=== PATIENT | male | born 1975 | race Two or more races ===

== ENCOUNTER 2024-05-01 01:00 | Inpatient (IN) | payer MEDICAID, OTHER ==
[~2024-05-01] VITALS: Ht 175.3 cm; Wt 72.3 kg
[2024-05-01] MEDS: ONDANSETRON HCL 4 MG/2 ML VIAL IV ONE (01:30)
--- NOTE | 2024-05-01 01:34 | ED.PDOC ---
HPI Comments 48-year-old male who came to ER via EMS for chest pains. Patient does have history of hypertension, diabetes, MS, status post CABG few days ago. Patient was sleeping earlier when feel sudden-onset chest pains, midsternal, 9/10 intensity, radiating to the back associated with shortness of breath and nausea Chief Complaint: Chest Pain Time Seen by MD: 01:33 Reviewed Notes: At[employer] Professor Notes Allergies: Coded Allergies: Metronidazole (Verified Allergy, Unknown, 05/01/24) Pantoprazole (Verified Allergy, Unknown, 05/01/24) Information Source: Patient, Emergency Med Personnel Mode of Arrival: EMS Severity: Moderate Timing: Minutes Duration: Since onset Prehospital treatment: 12 Lead EKG Location: Substernal Radiation: Back Quality: Sharp Onset: At Rest Cardiac Risk Factors: HTN, Diabetes PE Risk Factors: None History of: None Modifying Factors: Nothing Associated Signs and Symptoms: SOB, N/V, Back Pain Past Medical History PAST MEDICAL HISTORY: DM, HTN, MS Surgical History: CABG Family History Family History: Reviewed,noncontributory to illness Social History Smoker: Non-Smoker Alcohol: Denies ETOH Use Drugs: Denies Drug Use Lives In: Home Constitutional: denies: chills, diaphoresis, fatigue, fever, malaise, sweats, weakness, others EENTM: denies: blurred vision, double vision, ear bleeding, ear discharge, ear drainage, ear pain, ear ringing, eye pain, eye redness, hearing loss, mouth pain, mouth swelling, nasal discharge, nose bleeding, nose congestion, nose pain, photophobia, tearing, throat pain, throat swelling, voice changes, others Respiratory: reports: SOB at rest, shortness of breath; denies: cough, hemoptysis, orthopnea, SOB with excertion, stridor, wheezing, others Cardiovascular: reports: chest pain, dizzy spells; denies: diaphoresis, Dyspnea on exertion, edema, irregular heart beat, left arm pain, lightheadedness, palpitations, PND, syncope, others Gastrointestinal: denies: abdomen distended, abdominal pain, blood streaked bowels, constipated, diarrhea, dysphagia, difficulty swallowing, hematemesis, melena, nausea, poor appetite, poor fluid intake, rectal bleeding, rectal pain, vomiting, others Genitourinary: denies: burning, dysuria, flank pain, frequency, hematuria, inco ntinence, penile discharge, penile sore, pain, testicle pain, testicle swelling, urgency, others Neurological: reports: weakness; denies: dizziness, fainting, headache, left sided numbness, left sided weakness, numbness, paresthesia, pre-existing deficit, right sided numbness, right sided weakness, seizure, speech problems, tingling, tremors, others Musculoskeletal: reports: back pain; denies: gout, joint pain, joint swelling, muscle pain, muscle stiffness, neck pain, others Integumetry: denies: bruises, change in color, change in hair/nails, dryness, laceration, lesions, lumps, rash, wounds, others Allergic/Immunocompromised: denies: Difficulty Healing, Frequent Infections, Hives, Itching, others Hematologic/Lymphatic: denies: anemia, blood clots, easy bleeding, easy bruising, swollen glands, others Endocrine: denies: excessive hunger, excessive sweating, excessive thirst, excessive urination, flushing, intolerance to cold, intolerance to heat, unexplained weight gain, unexplained weight loss, others Psychiatric: denies: anxiety, bipolar disorder, depression, hopeless, panic disorder, schizophrenia, sleepless, suicidal, others Physical Exam General Appearance: No Apparent Distress, Normal HEENT: Normal ENT Inspection, Pharynx Normal, TMs Normal Neck: Full Range of Motion, Non-Tender, Normal, Normal Inspection Respiratory: Chest Non-Tender, Lungs Clear, No Accessory Muscle Use, No Respiratory Distress, Normal Breath Sounds Cardiovascular: No Edema, No JVD, No Murmur, No Gallop, Normal Peripheral Pulses, Regular Rate/Rhythm Breast Exam: Deferred Gastrointestinal: No Organomegaly, Non Tender, No Pulsatile Mass, Normal Bowel Sounds, Soft Genitalia: Deferred Pelvic: Deferred Rectal: Deferred Extremities: No calf tenderness, Normal capillary refill, Normal inspection, Normal range of motion, Non-tender, No pedal edema Musculoskeletal : Apperance: Normal Neurologic: Alert, music critic II-XII nml as Tested, No Motor Deficits, Normal Affect, Normal Mood, No Sensory Deficits Cerebellar Function: Normal Reflexes: Normal Skin: Dry, Normal Color, Warm Lymphatic: No Adenopathy Was a procedure done? Was a procedure done?: No CP Differential Dx Differential Diagnosis: Angina, Anxiety / Panic Attack, Electrolyte Disorder Differential Diagnosis: Angina, Chest Wall Pain, Costochondritis, Esophageal reflux/spasm, Gastritis, Myocardial Infarction, Pneumonia X-Ray, Labs, Meds, VS Vital Signs Date Time Temp Pulse Resp B/P (MAP) Pulse Ox O2 Delivery O2 Flow Rate FiO2 05/01/24 02:07 67 18 115/63 05/01/24 01:37 96 14 126/69 05/01/24 01:25 98.3 88 22 126/69 (88) 98 98.3 05/01/24 01:00 93 05/01/24 01:00 98.9 94 14 117/71 (86) 100 Lab Test 05/01/24 01:47 Range/Units White Blood Count Pending Red Blood Count Pending Hemoglobin Pending Hematocrit Pending Mean Corpuscular Volume Pending Mean Corpuscular Hemoglobin Pending Mean Corpuscular Hemoglobin Concent Pending Red Cell Distribution Width Pending Platelet Count Pending Mean Platelet Volume Pending Neutrophils (%) (Auto) Pending Lymphocytes (%) (Auto) Pending Monocytes (%) (Auto) Pending Basophils (%) (Auto) Pending Neutrophils # (Auto) Pending Lymphocytes # (Auto) Pending Monocytes # (Auto) Pending Prothrombin Time 10.7 9.3-11.8 sec Prothrombin Time INR 1.01 0.9-1.15 Activated Partial Thromboplast Time 22.4 L 24.5-34.5 SEC Sodium Level 134 L 136-145 mmol/L Potassium Level 3.4 L 3.5-5.1 mmol/L Chloride Level 101 98-107 mmol/L Carbon Dioxide Level 25 20-31 mmol/L Anion Gap 8 5-15 Blood Urea Nitrogen 18 9-23 mg/dL Creatinine 0.92 0.700-1.30 mg/dL Glomerular Filtration Rate Calc 101 >90 mL/min BUN/Creatinine Ratio 19.6 10.0-20.0 Serum Glucose 119 H 74-106 mg/dL Calcium Level 9.3 8.7-10.4 mg/dL Total Bilirubin 0.4 0.2-1.0 mg/dL Aspartate Amino Transferase (AST) 32 13-40 U/L Alanine Aminotransferase (ALT) 51 H 7-40 U/L Alkaline Phosphatase 105 46-116 U/L Troponin I High Sensitivity 303 *H </=54 ng/L Total Protein 5.7 5.7-8.2 g/dL Albumin 3.7 3.2-4.8 g/dL Current Medications Medications (Trade) Dose Ordered Sig/Dionisio Route Start Time Stop Time Status Last Admin Morphine Sulfate 4 mg ONCE ONCE IV 05/01/24 01:30 05/01/24 01:31 DC 05/01/24 01:37 Aspirin (Ecotrin Enteric Coated Tablet) 81 mg ONCE ONCE PO 05/01/24 02:30 05/01/24 02:31 DC 05/01/24 02:26 Time of 1ST Reevaluation: 01:30 Reevaluation 1ST: Unchanged Time of 2ND Reevaluation: 02:40 Reevaluation 2ND: Unchanged Consultation: Other (I called [facility] as the patient just received a double bypass there but they are at capacity and cannot accept transfer, will admit to [facility]) Patient Education/Counseling: Diagnosis, Treatment Family Education/Counseling: Diagnosis, Treatment Departure 1 Departure Time of Disposition: 02:41 (I called [facility] as the patient just received a double bypass there but they are at capacity and cannot accept transfer, will admit to [facility]) Impression: Primary Impression: Chest pain Additional Impression: Unstable angina Disposition: ADMITTED INPATIENT Admit to: Tele Condition: Guarded Critical Care Note Critical Care Time?: Yes (35 min-critical care time only) Critical care comment: Total critical care time: Approximately 36 minutes Due to a high probability of clinically significant, life threatening deterioration, the patient required my highest level of preparedness to intervene emergently and I personally spent this critical care time directly and personally managing the patient. This critical care time included obtaining a history; examining the patient; pulse oximetry; ordering and review of studies; arranging urgent treatment with development of a management plan; evaluation of patient's response to treatment; frequent reassessment; and, discussions with other providers. This critical care time was performed to assess and manage the high probability of imminent, life-threatening deterioration that could result in multi-organ failure. It was exclusive of separately billable procedures and treating other patients. Stability Stability form required: No Heart Score Heart Score: Heart Score Response (Comments) Value History Highly Suspicious [address]-Deviation 2 Age 45-64 1 Risk Factors >3 or Hx ASHD 2 Troponin Normal limit 0 Total 7 I personally scribed for MATTHEW MONET MD ([email or web address]) on 05/01/24 at 01:34. Electronically submitted by Frank Parish ([email or web address]). MATTHEW MONET MD May 01, 2024 01:34
[2024-05-01] MEDS: MORPHINE SULFATE 4 MG/ML SYR/VIAL IV ONE (01:37)
--- NOTE | 2024-05-01 01:41 | DVH ---
EXAM: XY CHEST PORTABLE CLINICAL HISTORY: chest pain TECHNIQUE: Single AP view of the chest WID: COMPARISON: None FINDINGS: Lines and tubes: Prior median sternotomy and CABG. Chest: The heart size and pulmonary vasculature is within normal limits. No pleural effusion, pneumothorax, or consolidation. The osseous structures are grossly intact. IMPRESSION: No acute cardiopulmonary abnormality.
[2024-05-01 02:14] LABS: INR 1.01 (0.9-1.15); Partial Thromboplastin Time 22.4 SEC (24.5-34.5); Prothrombin Time 10.7 sec (9.3-11.8)
[2024-05-01 02:16] LABS: Albumin 3.7 g/dL (3.2-4.8); Alkaline Phosphatase 105 U/L (46-116); Anion Gap 8 (5-15); Aspartate Aminotransferase 32 U/L (13-40); BUN/Creatinine Ratio 19.6 (10.0-20.0); Bilirubin, Total 0.4 mg/dL (0.2-1.0); Blood Urea Nitrogen 18 mg/dL (9-23); Calcium 9.3 mg/dL (8.7-10.4); Carbon Dioxide 25 mmol/L (20-31); Chloride 101 mmol/L (98-107); Total Protein 5.7 g/dL (5.7-8.2)
[2024-05-01 02:17] LABS: Alanine Aminotransferase 51 U/L (7-40); Glucose 119 mg/dL (74-106); Potassium 3.4 mmol/L (3.5-5.1); Sodium 134 mmol/L (136-145)
[2024-05-01] MEDS: ASPirin-EC 81 mg tab PO ONE (02:26)
[2024-05-01 03:04] LABS: Basophils # (auto) 0 10 ^3/uL (0-0.2); Basophils % (auto) 0.2 % (0.0-2.0); Eosinophils # (auto) 0.2 10 ^3/uL (0-0.8); Eosinophils % (auto) 1.1 % (0.0-7.0); Hematocrit 26.2 % (41.0-53.0); Hemoglobin 8.5 g/dL (13.5-17.5); Lymphocytes # (auto) 1.9 10 ^3/uL (0.4-5.4); Lymphocytes % (auto) 13.4 % (10.0-50.0); Mean Corpuscular Hemoglobin 31.7 pg (28.0-32.0); Mean Corpuscular Hgb Conc. 32.5 g/dL (32.0-36.0); Mean Corpuscular Volume 97.4 fL (80.0-100.0); Monocytes # (auto) 0.9 10 ^3/uL (0-1.3); Monocytes % (auto) 6.4 % (0.0-12.0); Neutrophils # (auto) 11.5 10 ^3/uL (1.6-8.6); Neutrophils % (auto) 78.9 % (37.0-80.0); Platelet Count (auto) 439 10^3/uL (140-450); Red Blood Cells 2.69 10^6/uL (4.5-5.90); White Blood Cell 14.6 10^3/uL (4.4-10.8)
[2024-05-01] MEDS ORDERED: NITROGLYCERIN 0.4 MG SL TAB SL PRN (04:15)
[2024-05-01] MEDS: FAMOTIDINE (10MG/ML) 2ML VL IV ONE (04:33)
[2024-05-01] MEDS: ATORVASTATIN 20 MG TAB PO ONE (04:34)
[2024-05-01] MEDS: SUCRALFATE 1 GM/10 ML ORAL SUSP PO ONE (04:42)
[2024-05-01] MEDS: POTASSIUM CHL 20 Meq TABLET PO ONE (04:42)
[2024-05-01] MEDS: MORPHINE SULFATE INJ 2 MG/ml SYRG IV PRN ×2 (04:49→15:52)
[2024-05-01] MEDS: ONDANSETRON HCL 4 MG/2 ML VIAL IV PRN (05:07)
--- NOTE | 2024-05-01 06:31 | DVHHPRES ---
History of Present Illness Resident Creating Document: RAFFYFACUNDOSHILPIDELMA RESIDENT History of Present Illness Patient is a 48-year-old male with a past medical history of coronary artery disease with history of 9 MIs status post multiple PTCA with the 11 stents, the most recent RI on 04/03/24 after which he got a CABG on 04/22 at [facility] and was discharged from the hospital on 04/28. Patient came to the ED after he had chest pain and shortness of breath about midnight today. Patient reports since the time he has got surgery and has come home he has been having mild chest pain likely associated with post surgery but he reported that since early in the morning today he has been having more chest pain at midnight the intensity increased and chest pain was substernal pressure-like, nonradiating, associated shortness of breath, no associated palpitations, sweating, abdominal pain, nausea. On arrival to the ED patient's vitals blood pressure 117/71 mmHg, heart rate 94 bpm, SpO2 > 92% on room air. Chest x-ray was done which showed increased pulmonary vascular markings, no acute cardiopulmonary abnormalities. Patient was given loading dose of aspirin in the EMS and morphine was given in the ED which relieved his chest pain to some extent. EKG showed sinus rhythm with changes suggestive of previous inferior and anteroseptal infarct, QT interval at 584 milliseconds. Troponins trended 303--> 306 Past medical history: Multiple MIs status post multiple PTCA and 11 stents, CABG, type 2 diabetes mellitus, hyperlipidemia, hypertension, diverticulitis Surgical history: Multiple PTCA, CABG, sigmoid colectomy, left lung thoracotomy Social history: Patient lives with family and denies using drugs. Occasional smoker and alcohol drinker Home medications: Metoprolol tartrate 12.5 mg b.i.d., aspirin 81 mg, Brilinta 90 mg b.i.d., atorvastatin 80 mg, furosemide 20 mg q.d. Review of Systems Review of Systems Patient reports mild chest pain, pressure-like more around the sternal scar of surgery. mild nausea, denies vomiting Denies shortness of breath, palpitations, dizziness. Allergies: Coded Allergies: Metronidazole (Verified Allergy, Unknown, 05/01/24) Pantoprazole (Verified Allergy, Unknown, 05/01/24) Medications Current Medications Medications Dose Ordered Sig/Dionisio Route Start Time Stop Time Status Last Admin Dose Admin Nitroglycerin 0.4 mg Q5MINP PRN SL 05/01/24 04:15 Morphine Sulfate 2 mg Q30M PRN IV 05/01/24 04:15 Atorvastatin Calcium 80 mg HS PO 05/01/24 22:00 Metoprolol Tartrate 12.5 mg BID PO 05/01/24 10:00 Ticagrelor 90 mg BID PO 05/01/24 10:00 Furosemide 40 mg ONCE IV 05/01/24 04:15 UNV Aspirin 81 mg DAILY PO 05/01/24 10:00 Morphine Sulfate 2 mg Q4HPRN PRN IV 05/01/24 04:15 05/01/24 04:49 2 MG Acetaminophen/ Hydrocodone Bitart 1 tab Q4HP PRN PO 05/01/24 04:15 Ondansetron HCl 4 mg Q6HPRN PRN IV 05/01/24 05:00 05/01/24 05:07 4 MG Exam Vital Signs Vital Signs Date Time Temp Pulse Resp B/P (MAP) Pulse Ox O2 Delivery O2 Flow Rate FiO2 05/01/24 04:49 82 20 131/79 05/01/24 04:28 98 05/01/24 01:25 98.3 98.3 05/01/24 01:15 Nasal Cannula* 2 28 Exam Physical Examination Constitutional: Patient was alert and oriented to time, place and person and appears to be in mild distress because of the chest pain. Gen - mild conjunctival pallor, no icterus, no cyanosis, no clubbing, no LAD, no edema . Skin - Patients skin is warm and dry and pale HEENT - normocephalic, atraumatic, dry mucous membranes. Neck - full ROM, no LAD, no JVD Pulmonary - B/L vesicular breath sounds. no crackles , no wheezing. cardiovascular - normal S1,S2 heard. no murmurs heard. peripheral pulses radial 2+, pedal 2+. GI - soft abdomen without tenderness to palpation . no hepatospleenomegaly. Bowel sounds normoactive Neurological - Bilateral upper extremity strength 5/5, bilateral lower extremity strength 5/5, no facial droop, normal speech, no tremor, no sensory deficiets. Labs/Xrays Labs Test 05/01/24 02:45 05/01/24 01:47 Range/Units White Blood Count 14.6 H 4.4-10.8 10^3/uL Red Blood Count 2.69 L 4.5-5.90 10^6/uL Hemoglobin 8.5 L 13.5-17.5 g/dL Hematocrit 26.2 L 41.0-53.0 % Mean Corpuscular Volume 97.4 80.0-100.0 fL Mean Corpuscular Hemoglobin 31.7 28.0-32.0 pg Mean Corpuscular Hemoglobin Concent 32.5 32.0-36.0 g/dL Red Cell Distribution Width 14.0 11.8-14.3 % Platelet Count 439 140-450 10^3/uL Mean Platelet Volume 7.8 6.9-10.8 fL Neutrophils (%) (Auto) 78.9 37.0-80.0 % Lymphocytes (%) (Auto) 13.4 10.0-50.0 % Monocytes (%) (Auto) 6.4 0.0-12.0 % Eosinophils (%) (Auto) 1.1 0.0-7.0 % Basophils (%) (Auto) 0.2 0.0-2.0 % Neutrophils # (Auto) 11.5 H 1.6-8.6 10 ^3/uL Lymphocytes # (Auto) 1.9 0.4-5.4 10 ^3/uL Monocytes # (Auto) 0.9 0-1.3 10 ^3/uL Eosinophils # (Auto) 0.2 0-0.8 10 ^3/uL Basophils # (Auto) 0 0-0.2 10 ^3/uL Nucleated Red Blood Cells 0.0 % Troponin I High Sensitivity 306 *H </=54 ng/L Prothrombin Time 10.7 9.3-11.8 sec Prothrombin Time INR 1.01 0.9-1.15 Activated Partial Thromboplast Time 22.4 L 24.5-34.5 SEC Sodium Level 134 L 136-145 mmol/L Potassium Level 3.4 L 3.5-5.1 mmol/L Chloride Level 101 98-107 mmol/L Carbon Dioxide Level 25 20-31 mmol/L Anion Gap 8 5-15 Blood Urea Nitrogen 18 9-23 mg/dL Creatinine 0.92 0.700-1.30 mg/dL Glomerular Filtration Rate Calc 101 >90 mL/min BUN/Creatinine Ratio 19.6 10.0-20.0 Serum Glucose 119 H 74-106 mg/dL Calcium Level 9.3 8.7-10.4 mg/dL Total Bilirubin 0.4 0.2-1.0 mg/dL Aspartate Amino Transferase (AST) 32 13-40 U/L Alanine Aminotransferase (ALT) 51 H 7-40 U/L Alkaline Phosphatase 105 46-116 U/L Total Protein 5.7 5.7-8.2 g/dL Albumin 3.7 3.2-4.8 g/dL Assessment/Plan Assessment/Plan Assessment # Acute chest pain, rule out ACS # ?Post surgical chest pain # SIRS +, likely reactive from post surgery # NSTEMI likely type II # PE less likely, Wells score for PE < 4 # ?GERD # CAD s/p multiple PTCA s/p CABG 04/22/24 # ?heart failure with improved ejection fraction # Normocytic anemia # hypokalemia Plan - patient continued on home medication - metoprolol 12.5 mg b.i.d. - atorvastatin 80 mg - Brilinta 90 mg b.i.d. - aspirin 81 mg daily - given furosemide 40 mg once - famotidine 20 mg IV once and sucralfate 1 g p.o. given - replenish potassium with 20 mEq p.o. - morphine p.r.n. for chest pain - echo pending - cardiology consult pending DVT prophylaxis: Enoxaparin 40 mg sc daily Pud prophylaxis: Famotidine 20 mg IV daily Goals of care discussed with the patient for over 23 minutes. Full code plan discussed with Dr. Najera Plan discussed with: Patient My Orders Orders - DEBRA GOODMAN RESIDENT Procedure Category Date Status Time Admit ADMIT 05/01/24 Transmitted 04:04 Nitroglycerin PHA 05/01/24 In Process Sublingual (Ntrostat 04:15 Morphine Sulfate PHA 05/01/24 In Process Injection 04:15 Oxygen By Nasal RT 05/01/24 Transmitted Cannula 04:04 Stat Ekg For Chest FOUZIA 05/01/24 In Process Pain 04:04 Paving Machine Operator For FOUZIA 05/01/24 In Process 24 Hours 04:04 Emergency Dysrhythmia FOUZIA 05/01/24 In Process Protocol 04:04 Atorvastatin (Lipitor) PHA 05/01/24 In Process 22:00 Metoprolol Tartrate PHA 05/01/24 In Process Tablet (Lopressor Ta 10:00 Ticagrelor (Brilinta) PHA 05/01/24 In Process 10:00 Furosemide Injection PHA 05/01/24 Pending (Lasix Injection) 04:15 Aspirin Tablet PHA 05/01/24 In Process 10:00 Echo 2d Mode Cardiac US 05/01/24 Logged DOP 04:04 Morphine Sulfate PHA 05/01/24 In Process Injection 04:15 Hydrocodone-Acet PHA 05/01/24 In Process 7.5/325mg Tab ([place] 04:15 * Cardiology Consult CONS 05/01/24 Transmitted 04:04 Cardiac DIET 05/01/24 Transmitted Diet-2gna,Lofat,Lochol Breakfast Code Status CODE 05/01/24 Transmitted 04:04 Urinalysis LAB 05/01/24 Logged 04:25 Drug Screen LAB 05/01/24 Logged 04:25 Covid19 Antigen Michaela LAB 05/01/24 Logged Mrsa Screen IMANI 05/01/24 Logged 04:25 Rapid Influenza A&B LAB 05/01/24 Logged 04:25 Complete Blood Count LAB 05/01/24 Logged 08:00 Comprehensive LAB 05/01/24 Logged Metabolic Panel 08:00 Ondansetron Hcl PHA 05/01/24 In Process (Zofran) 05:00 Date of Service: May 01, 2024 Billing Provider: JYOTHI NAJERA MD AJ,[facility] RESIDENT May 01, 2024 06:31
[2024-05-01] MEDS: FUROSEMIDE 40 MG/4 ML VIAL IV ONE (07:13)
[2024-05-01 08:00] VITALS: PULSE 89; RESP 17; O2SAT 97
[2024-05-01 09:06] LABS: Urine Bacteria FEW /hpf (None Seen); Urine Blood Negative /uL (Negative); Urine Clarity Clear (Clear); Urine Color Light-Yellow (Yellow); Urine Protein, UAD Negative (Negative); Urine Squamous Epithelial Cell None Seen /hpf (<5); Urine Urobilinogen Normal (Negative); Urine WBC <1 /hpf (0 - 3)
[2024-05-01 09:15] LABS: Cannabinoid Screen, Urine Neg (NEGATIVE); Opiate Scree,Urine Neg (NEGATIVE)
[2024-05-01 09:25] LABS: Amphetamine Screen, Urine Neg (NEGATIVE); Barbiturate Scree,Urine Neg (NEGATIVE); Benzodiazephine Screen, Urine Neg (NEGATIVE); Cocaine Screen, Urine Neg (NEGATIVE); Phencyclidine Screen, Urine Neg (NEGATIVE)
[2024-05-01] MEDS ORDERED: VANCOMYCIN PER PHARMACY 0 MG IV SCH (10:45)
--- NOTE | 2024-05-01 10:49 | DVHCONRES ---
NATO MONTAÑO RESIDENT 05/01/24 1049: Date Seen: May 01, 2024 Resident Creating Document: NATO MONTAÑO RESIDENT Referring Physician DR. Rachael Toussaint History of Present Illness This is a 48 year old male with a significant past medical history of CAD s/p multiple stents. First myocardial infarct was at age 28 and a recent PTCA was on 04/03/2024 and he had CABG on 04/22/2024 at [facility]. He presented to the ED with a chief complaints of chest pain and shortness of breath that started midnight last night. Pain felt like tightness in his chest similar to what he had experience in past. It associated with SOB, hot but but not fever, had nausea but not vomiting and just overall felt unwell. Thus he was brought to ED for evaluation. His vitals upon arrival to the ED read BP 117/71 mmHg, HR: 94 bpm, SpO2 > 92% on room air. Blood work revealed WBC: 14.6, hgb: 8.5; plt: 439. troponin: 303, 308, cr: 0.92. UA and toxicology screen was negative for infection and drugs respectively. Chest x-ray showed increased pulmonary vascular markings, no acute cardiopulmonary abnormalities, 12 lead EKG shows evidences of significant old VT, nothing acute that is concerning. Echo is pending. Patient's home medication include: Aspirin 81 mg daily, Ticagrelor 90mg bid, atorvastatin 80 mg Metoprolol tartrate 12.5 mg b.i.d. and furosemide 20 qd. Cardiology consulted for further assessment of patient. Past Medical History Multiple MIs status post multiple PTCA and 11 stents, CABG, type 2 diabetes mellitus, hyperlipidemia, hypertension, diverticulitis Past Surgical History Multiple PTCA, CABG, sigmoid colectomy, left lung thoracotomy Family History Father: Had 2 myocardial infarction, CHF; Mother: Cancer and Diabetes 4 Siblings: all had VT at least once Social History Patient lives with family 20 pack years Denies any illicit drug us. Alcohol 6-8 Bears on occasions. Allergies: Coded Allergies: Iodinated Diagnostic Agents (Verified Allergy, Severe, 05/01/24) Metronidazole (Verified Allergy, Unknown, 05/01/24) Pantoprazole (Verified Allergy, Unknown, 05/01/24) Home Meds Reported Medications Icosapent Ethyl (Icosapent Ethyl) 1 Gm Cap, 2 GM PO BIDWM, CAP 05/01/24 Omeprazole (Omeprazole Dr) 20 Mg Cap, 20 MG PO BID, CAP 05/01/24 Colchicine (Colchicine) 0.6 Mg Cap, 0.6 MG PO DAILY, CAP 05/01/24 Losartan Potassium (Losartan Potassium) 25 Mg Tab, 25 MG PO BID, MG 05/01/24 Carvedilol (Carvedilol) 12.5 Mg Tab, 12.5 MG PO Q12HR, MG 05/01/24 Ticagrelor Base (BRILINTA) 90 Mg Tab, 90 MG PO BID, TAB 05/01/24 Aspirin (Aspirin EC Adult Low Dose) 81 Mg Tab, 81 MG PO DAILY, TAB 05/01/24 Atorvastatin Calcium (Lipitor) 80 Mg Tab, 80 MG PO DAILY, TAB 05/01/24 Current Medications Current Medications Medications (Trade) Dose Ordered Sig/Dionisio Route PRN Reason Start Time Stop Time Status Last Admin Nitroglycerin (Ntrostat Sublingual) 0.4 mg Q5MINP PRN SL FOR CHEST PAIN 05/01/24 04:15 Morphine Sulfate 2 mg Q30M PRN IV FOR CHEST PAIN 05/01/24 04:15 Atorvastatin Calcium (Lipitor) 80 mg HS PO 05/01/24 22:00 Metoprolol Tartrate (Lopressor Tablet) 12.5 mg BID PO 05/01/24 10:00 Ticagrelor (Brilinta) 90 mg BID PO 05/01/24 10:00 Aspirin 81 mg DAILY PO 05/01/24 10:00 Morphine Sulfate 2 mg Q4HPRN PRN IV SEVERE PAIN (7-10 PAIN SCALE) 05/01/24 04:15 05/01/24 04:49 Acetaminophen/ Hydrocodone Bitart ([place] 7.5/325MG Tab) 1 tab Q4HP PRN PO MODERATE PAIN (4-6 PAIN SCALE) 05/01/24 04:15 Ondansetron HCl (Zofran) 4 mg Q6HPRN PRN IV NAUSEA OR VOMITING 05/01/24 05:00 05/01/24 05:07 Famotidine (Pepcid Injection) 20 mg DAILY IV 05/02/24 10:00 Enoxaparin Sodium (Lovenox) 40 mg DAILY SC 05/01/24 10:00 Review of Systems Constitutional: Denies fever no chills no feeling of malaise HEENT: Denies headache, ear pain, ear discharges, conjunctivitis, nasal discharge throat pain Cardiovascular: chest pains substernal; No palpitation, orthopnea, PND, or pedal edema Respiratory: Mild shortness of breath, cough, sputum production, hemoptysis, GI: Denies abdominal pain, nausea, vomiting, diarrhea, hematemesis, hematochezia, : Denies frequency, urgency, hematuria, Endocrine: Denies unintentional weight gain or weight loss, feeling of hot flashes, Marcus: Denies easy bruising, bleeding disorders, epistaxis Musculoskeletal: pain at lower right lower extremity at the side of the vein harvest Psych: No evidence of depression, lisandro, suicidal ideation Vital Signs Vital Signs Date Time Temp Pulse Resp B/P (MAP) Pulse Ox O2 Delivery O2 Flow Rate FiO2 05/01/24 08:00 90 05/01/24 07:13 117/72 05/01/24 06:08 14 98 05/01/24 01:25 98.3 98.3 05/01/24 01:15 Nasal Cannula* 2 28 Physical Exam General examination- Mild acute distress HEENT: PEERLA, no acute nasal discharge Chest: Incision site scars, s/p CABG, healing wound with dry blood. no murmur Lung: No wheeze or rhonchi Abdomen: Nondistended, BS+, nontender, no organomegaly Musculoskeletal: Tenderness at right lower extremities Lower extremity: No leg edema Neurological: cranial nerves intact, no acute dysarthria or dysphagia Psychiatry-- Normal mood and affect Skin- no acute rash or purpura Labs/Diagnostic Data Labs Test 05/01/24 07:25 05/01/24 02:45 05/01/24 01:47 Range/Units Urine Color Light-yellow Yellow Urine Clarity Clear Clear Urine pH 7.0 5.0-9.0 Urine Specific [place] 1.010 1.001-1.035 Urine Protein Negative Negative Urine Ketones Negative Negative Urine Blood Negative Negative /uL Urine Nitrite Negative Negative Urine Bilirubin Negative Negative Urine Urobilinogen Normal Negative mg/dL Urine Leukocyte Esterase Negative Negative /uL Urine RBC 1 0 - 3 /hpf Urine WBC <1 0 - 3 /hpf Urine Squamous Epithelial Cells None seen <5 /hpf Urine Bacteria Few H None Seen /hpf Urine Glucose Normal Normal mg/dL Urine Opiates Screen Neg NEGATIVE Urine Fentanyl Screen Neg NEGATIVE Urine Barbiturates Screen Neg NEGATIVE Urine Phencyclidine Screen Neg NEGATIVE Urine Amphetamines Screen Neg NEGATIVE Urine Benzodiazepines Screen Neg NEGATIVE Urine Cocaine Screen Neg NEGATIVE Urine Cannabinoids Screen Neg NEGATIVE White Blood Count 14.6 H 4.4-10.8 10^3/uL Red Blood Count 2.69 L 4.5-5.90 10^6/uL Hemoglobin 8.5 L 13.5-17.5 g/dL Hematocrit 26.2 L 41.0-53.0 % Mean Corpuscular Volume 97.4 80.0-100.0 fL Mean Corpuscular Hemoglobin 31.7 28.0-32.0 pg Mean Corpuscular Hemoglobin Concent 32.5 32.0-36.0 g/dL Red Cell Distribution Width 14.0 11.8-14.3 % Platelet Count 439 140-450 10^3/uL Mean Platelet Volume 7.8 6.9-10.8 fL Neutrophils (%) (Auto) 78.9 37.0-80.0 % Lymphocytes (%) (Auto) 13.4 10.0-50.0 % Monocytes (%) (Auto) 6.4 0.0-12.0 % Eosinophils (%) (Auto) 1.1 0.0-7.0 % Basophils (%) (Auto) 0.2 0.0-2.0 % Neutrophils # (Auto) 11.5 H 1.6-8.6 10 ^3/uL Lymphocytes # (Auto) 1.9 0.4-5.4 10 ^3/uL Monocytes # (Auto) 0.9 0-1.3 10 ^3/uL Eosinophils # (Auto) 0.2 0-0.8 10 ^3/uL Basophils # (Auto) 0 0-0.2 10 ^3/uL Nucleated Red Blood Cells 0.0 % Troponin I High Sensitivity 306 *H </=54 ng/L Prothrombin Time 10.7 9.3-11.8 sec Prothrombin Time INR 1.01 0.9-1.15 Activated Partial Thromboplast Time 22.4 L 24.5-34.5 SEC Sodium Level 134 L 136-145 mmol/L Potassium Level 3.4 L 3.5-5.1 mmol/L Chloride Level 101 98-107 mmol/L Carbon Dioxide Level 25 20-31 mmol/L Anion Gap 8 5-15 Blood Urea Nitrogen 18 9-23 mg/dL Creatinine 0.92 0.700-1.30 mg/dL Glomerular Filtration Rate Calc 101 >90 mL/min BUN/Creatinine Ratio 19.6 10.0-20.0 Serum Glucose 119 H 74-106 mg/dL Calcium Level 9.3 8.7-10.4 mg/dL Total Bilirubin 0.4 0.2-1.0 mg/dL Aspartate Amino Transferase (AST) 32 13-40 U/L Alanine Aminotransferase (ALT) 51 H 7-40 U/L Alkaline Phosphatase 105 46-116 U/L Total Protein 5.7 5.7-8.2 g/dL Albumin 3.7 3.2-4.8 g/dL Assessment NSTEMI -->Serial troponin --> Possible coronary angiogram on Saturday --> Contrast dye allergies --> prep for angiogram --> Benedryl 25 mg bid --> Methylprednisolone : 40 mg daily --> Famotidine 20 mg BID --> Rule out incisional wound infections. will continue to monitor over the weekend for possible LHC on 05/04/2024 Rule out acute mediastinitis --> CTA with contrast: Contrast dye allergies --> ESR: 43; CRP: 1.53 --> Blood culture:pending --> wound swap --> colchicine .6mg bid --> Vancomycin per pharmacy --> Ceftriaxone Rule out postpericardiotomy syndrome ( PPS) --> CABG on 04/22 at [facility] --> History of 9 myocardial infarctions and 11 Stents --> Continue DAPT, statin and ezetimibe, BB Diabetes mellitus Type II --> Hgb1 A pending --> Serum glucose Hypertension --> Current BP: 117/72 --> Continue Metoprolol Hypokalemia --> K: 3.2 --> replaced SIRS --> WBC: 14.6 --> Continue management per Primary team Thank you for allowing us to participate in the care of this patient. Please call if you have any questions or concerns. Plan discussed with: Patient Visit Coding Cardiology RES Date of Service: May 01, 2024 Billing Provider: KENDELL GRIER MD Cardiology Common Codes: [id number] INP/OBS CARE (High) Cardiology Consultation Codes: [id number] CONSULT <60MIN PETER WEST MD 05/04/24 1202: Allergies: Coded Allergies: Iodinated Diagnostic Agents (Verified Allergy, Severe, 05/01/24) Metronidazole (Verified Allergy, Unknown, 05/01/24) Pantoprazole (Verified Allergy, Unknown, 05/01/24) Home Meds Reported Medications Icosapent Ethyl (Icosapent Ethyl) 1 Gm Cap, 2 GM PO BIDWM, CAP 05/01/24 Omeprazole (Omeprazole Dr) 20 Mg Cap, 20 MG PO BID, CAP 05/01/24 Colchicine (Colchicine) 0.6 Mg Cap, 0.6 MG PO DAILY, CAP 05/01/24 Losartan Potassium (Losartan Potassium) 25 Mg Tab, 25 MG PO BID, MG 05/01/24 Carvedilol (Carvedilol) 12.5 Mg Tab, 12.5 MG PO Q12HR, MG 05/01/24 Ticagrelor Base (BRILINTA) 90 Mg Tab, 90 MG PO BID, TAB 05/01/24 Aspirin (Aspirin EC Adult Low Dose) 81 Mg Tab, 81 MG PO DAILY, TAB 05/01/24 Atorvastatin Calcium (Lipitor) 80 Mg Tab, 80 MG PO DAILY, TAB 05/01/24 Assessment Patient had recent CABG. He is presenting with chest pain that he described as substernal tightness and heaviness. Pain is intermittent but not related to activity. It reminds him of his anginal pain prior to his CABG. No shortness of breath at this point. He has been compliant his medications. No fever or chills. No cough. Plan/Recommendation Patient is presenting with chest pain and elevated troponin. EKG is not showing any acute ischemic changes. He had recent 2 vessel CABG at [facility]. His white count is elevated. He is being worked up by primary team for infectious process. From the cardiac standpoint, he is getting an echo done. We will trend his troponin. We will put him on IV heparin. Continue aspirin and statins. Continue the rest of the cardiac medications. Decision will be made later whether he would need coronary and graft angiography. NATO MONTAÑO RESIDENT May 01, 2024 10:49 PETER WEST MD May 04, 2024 12:02
[2024-05-01] MEDS: IOHEXOL 350 MG/ML 100ML IJ ONE (10:51)
[2024-05-01 11:32] LABS: CRP High Sensitivity 1.53 mg/dL (<1.0); Magnesium 2.1 mg/dL (1.6-2.6)
[2024-05-01] MEDS: ENOXAPARIN SOD 40 MG/0.4 ML SYRINGE SC SCH (11:38)
[2024-05-01] MEDS: METOPROLOL TARTRATE 25 MG TAB PO SCH (11:38)
[2024-05-01] MEDS: ASPirin 81 mg TAB PO SCH (11:39)
[2024-05-01] MEDS: HYDROcodone-ACET 7.5/325MG TAB PO PRN (11:39)
[2024-05-01] MEDS: TICAGRELOR 90 MG TAB PO SCH (11:40)
[2024-05-01] MEDS: cefTRIAXone 1GM/50ML D5W 50 ML IV ONE (11:40)
[2024-05-01] MEDS: COLCHICINE 0.6 MG CAP PO ONE (11:41)
[2024-05-01] MEDS: VANCOMYCIN 1.75GM/350ML 350 ML IV ONE (11:58)
[2024-05-01 12:00] LABS: COVID19 ANTIGEN SOFIA FIA NEGATIVE (NEGATIVE); Rapid Influenza A Negative (Negative); Rapid Influenza B Negative (Negative)
[2024-05-01] MEDS: EZETIMIBE 10 MG TAB PO ONE (12:22)
[2024-05-01 13:19] LABS: Basophils # (auto) 0 10 ^3/uL (0-0.2); Basophils % (auto) 0.3 % (0.0-2.0); Eosinophils # (auto) 0.2 10 ^3/uL (0-0.8); Eosinophils % (auto) 1.7 % (0.0-7.0); Monocytes # (auto) 0.8 10 ^3/uL (0-1.3)
[2024-05-01 13:22] LABS: Lymphocytes # (auto) 1.6 10 ^3/uL (0.4-5.4); Lymphocytes % (auto) 13.7 % (10.0-50.0); Mean Corpuscular Hemoglobin 32.7 pg (28.0-32.0); Mean Corpuscular Hgb Conc. 34.5 g/dL (32.0-36.0); Mean Corpuscular Volume 94.9 fL (80.0-100.0); Monocytes % (auto) 6.9 % (0.0-12.0); Neutrophils # (auto) 9.3 10 ^3/uL (1.6-8.6); Neutrophils % (auto) 77.4 % (37.0-80.0); Platelet Count (auto) 487 10^3/uL (140-450); Red Blood Cells 2.74 10^6/uL (4.5-5.90); Red Cell Distribution Width 14.1 % (11.8-14.3)
[2024-05-01 13:32] LABS: Albumin 3.9 g/dL (3.2-4.8); Alkaline Phosphatase 114 U/L (46-116); Anion Gap 6 (5-15); Aspartate Aminotransferase 26 U/L (13-40); BUN/Creatinine Ratio 13.7 (10.0-20.0); Bilirubin, Total 0.6 mg/dL (0.2-1.0); Blood Urea Nitrogen 14 mg/dL (9-23); Calcium 9.5 mg/dL (8.7-10.4); Carbon Dioxide 29 mmol/L (20-31); Chloride 99 mmol/L (98-107); Potassium 3.6 mmol/L (3.5-5.1)
[2024-05-01 13:35] LABS: Alanine Aminotransferase 54 U/L (7-40); Glucose 126 mg/dL (74-106); Sodium 134 mmol/L (136-145)
[2024-05-01 14:14] LABS: Erythrocyte Sedimentation Rate 43 mm/hr (0-20)
[2024-05-01] MEDS ORDERED: OMEP1CAP70 PO (15:15)
[2024-05-01] MEDS ORDERED: ASPI-316 PO (15:15)
[2024-05-01] MEDS ORDERED: LOSA-533 PO (15:15)
[2024-05-01] MEDS ORDERED: ATOR80TA PO (15:15)
[2024-05-01] MEDS ORDERED: TICA90TA PO (15:15)
[2024-05-01] MEDS ORDERED: ICOS1CAP3 PO (15:15)
[2024-05-01] MEDS ORDERED: COLC1CAP PO (15:15)
[2024-05-01] MEDS ORDERED: CARV12.544 PO (15:15)
--- NOTE | 2024-05-01 15:42 | DVHSR ---
APPROVED REPORT EXAM: LIMITED Two-dimensional and M-mode echocardiogram with Doppler and color Doppler. Blood Pressure: 117/72 mmHg INDICATION SOB, CABG on 04/22/'9 Contrast Details Indication: 158 RISK FACTORS Height: 5'9, Weight: 158 DIMENSIONS LVDd5.2 (3.8-5.7cm)LA (2D) (1.9-4.0cm)Aortic Root3.2 (2.0-3.7cm) LVDs3.9 (2.5-4.0cm)LA (MM) (1.9-4.0cm)Aortic Cusp Exc1.7 (1.5-2.0cm) EF (%) 50.0 (55-70%)Rt. Atrium (1.9-4.0cm)Asc. Aorta cm IVSd0.9 (0.7-1.1cm)RV (D) (1.8-2.4cm) PWd0.9 (0.7-1.1cm) Mitral Valve MitralMitral Stenosis E wave0.85m/sMV Mean GR.mmHg A wave0.74m/sMV Peak GR.mmHg E/A ratio1.12D MVAcm2 DECEL [id number] 1/2 Timems Aortic Valve Aortic ValveAortic Stenosis V10.89m/Liam Mean GR.4mmHg V21.39m/Liam Peak GR.8mmHg LVOT Diameter2.1 (1.8-2.4cm)Doppler AVA2.22cm2 Pulmonic Valve V21.56m/s Tricuspid Valve TR Velocity2.45m/s [id number] LEFT VENTRICLE The left ventricle is of normal in size. Left ventricular wall thickness was normal. Ejection fract ion is estimated at around 50%. The study is inadequate to assess for wall motion abnormalities. Th ere appears to be paradoxical septal wall motion abnormality. There is a grade 2 diastolic dysfuncti on. E to E prime ratio is in the normal range. RIGHT VENTRICLE The right ventricle is not well visualized. ATRIA The left atrium was of normal size. The right atrium is not well visualized. MITRAL VALVE The mitral valve is of normal structure and function. PULMONIC VALVE Not well visualized. TRICUSPID VALVE Not well visualized. AORTIC VALVE The aortic valve appears to be of normal structure and function. GREAT VESSELS The aortic root is of normal size. PERICARDIAL EFFUSION There is no pericardial effusion. Other Information Quality : Technically LimitedRhythm : Technically limited study due to pt in pain and unable to obtain apicals or subs due to scar Conclusion The study is technically limited. The left ventricle is of normal size and likely low-normal systolic function. Ejection fraction is estimated at 60%. There appears to be paradoxical septal wall motion abnormality. Otherwise, the study is inadequate t o assess for wall motion abnormalities. There is grade II diastolic dysfunction. The right ventricle is not well visualized. The IVC is of normal size and collapses normally with inspiration. RV systolic pressure is estimated at 24 mm Hg. There is no prior study for comparison.
[2024-05-01] MEDS: methylPREDNISolone SOD SUCC 40 MG/ML VL IV ONE (15:52)
--- NOTE | 2024-05-01 17:49 | DVHPNRES ---
Progress Note Date Seen: May 01, 2024 Resident Creating Document: MARILEE BETANCOURT RESIDENT Medical Necessity Reason Pt with a Central, PICC or Fol: No Subjective Review of Systems Patient is 48 years old male with past medical history of coronary artery disease, DC 9 times, status post PTCA times 11, most recent DC on 04/03/24 and had a CABG at [facility] on April 22, 2024 and discharged on 04/28/2024, hypertension, diabetes mellitus type 2, hyperlipidemia, history of diverticulitis came with a complaint of chest pain and shortness of breaths. As per patient he has been having chest pain since midnight which woke him up from the sleep. Pain lasted about 30 minute and came back and woke him up from sleep in 30 minutes. Chest pain was central, 10/10, pressure-like, radiating to the left side of the arm. Patient's chest pain was also associated with shortness of breath. Patient denied any fever, palpitation, cough, dysuria, acute joint pain or swelling, rash, dysarthria or change in vision. Patient also reported that has been feeling some exertional shortness of breath since yesterday morning. She lab workup revealed WBC 14.6, hemoglobin 8.5> 9.0, potassium 3.4, ALT 51, troponin I 303, INR 1.01, CRP 1.53, TSH 1.95, TG 186, BNP 226, HGB A1c 6.7. EKG sinus rhythm, no acute ST elevation or depression.No acute cardiopulmonary abnormality. Echo 2D revealed-Ejection fraction is estimated at 60%. paradoxical septal wall motion abnormality. grade II diastolic dysfunction. The right ventricle is not well visualized. RV systolic pressure is estimated at 24 mm Hg. PMH-coronary artery disease, MIx 9 times, status post PTCA x11, most recent DC on 04/03/24 and had a CABG at [facility] on April 22, 2024 and discharged on 04/28/2024, hypertension, diabetes mellitus type 2, hyperlipidemia, history of diverticulitis PSH- Multiple PTCA, CABG, sigmoid colectomy, left lung thoracotomy Allergy- iodinated diagnostic agent, metronidazole, pantoprazole Home medications: Metoprolol tartrate 12.5 mg b.i.d., aspirin 81 mg, Brilinta 90 mg b.i.d., atorvastatin 80 mg, furosemide 20 mg q.d. Personal History/ Social History- Patient lives with family and denies using drugs. Occasional smoker and alcohol drinker Patient was seen today at the bedside. Patient Cardiovascular- deny cough or palpitation Respiratory- denies cough or wheezing Gastrointestinal- denies any rectal bleeding, nausea or vomiting Musculoskeletal-denies acute joint swelling or tenderness or redness Neurological- denies acute dysarthria, dysphagia, change in vision Psychiatry- denies depression or SI or HI Skin- denies acute rash or purpura Patient was seen today for clinical evaluation. Labs and chart reviewed. Patient reported feeling better today. Patient was seen by Cardiology, recommendation reviewed and appreciated. Per cardiology possible coronary angiogram on Saturday. Due for CT angiogram. Objective vital signs Vital Sign Date Time Temp Pulse Resp B/P (MAP) Pulse Ox O2 Delivery O2 Flow Rate FiO2 05/01/24 16:22 80 17 109/63 05/01/24 16:00 98 05/01/24 08:00 Nasal Cannula* 4 36 05/01/24 08:00 98.4 98.4 medications Current Medications Medications Dose Ordered Sig/Dionisio Route Start Time Stop Time Status Last Admin Dose Admin Nitroglycerin 0.4 mg Q5MINP PRN SL 05/01/24 04:15 Morphine Sulfate 2 mg Q30M PRN IV 05/01/24 04:15 05/01/24 15:52 2 MG Atorvastatin Calcium 80 mg HS PO 05/01/24 22:00 Metoprolol Tartrate 12.5 mg BID PO 05/01/24 10:00 05/01/24 11:38 12.5 MG Ticagrelor 90 mg BID PO 05/01/24 10:00 05/01/24 11:40 90 MG Aspirin 81 mg DAILY PO 05/01/24 10:00 05/01/24 11:39 81 MG Morphine Sulfate 2 mg Q4HPRN PRN IV 05/01/24 04:15 05/01/24 04:49 2 MG Acetaminophen/ Hydrocodone Bitart 1 tab Q4HP PRN PO 05/01/24 04:15 05/01/24 11:39 1 TAB Ondansetron HCl 4 mg Q6HPRN PRN IV 05/01/24 05:00 05/01/24 15:51 4 MG Famotidine 20 mg DAILY IV 05/02/24 10:00 Enoxaparin Sodium 40 mg DAILY SC 05/01/24 10:00 05/01/24 11:38 40 MG Colchicine 0.6 mg Q12HR PO 05/01/24 22:00 Vancomycin HCl 0 ml @ 0 mls/hr UD IV 05/01/24 10:45 Ceftriaxone Sodium 50 ml @ 100 mls/hr DAILY@09 IV 05/02/24 09:00 EZETIMIBE 10 mg DAILY PO 05/02/24 10:00 Diphenhydramine HCl 25 mg BID PO 05/01/24 22:00 Famotidine 20 mg Q12HR PO 05/01/24 22:00 Methylprednisolone Sodium Succinate 40 mg DAILY IV 05/02/24 10:00 Vancomycin HCl 250 ml @ 200 mls/hr Q12H IV 05/02/24 00:00 Examination General examination- awake, alert, oriented, conversant, sternal incision tray from recent CABG HEENT- PEERLA, no acute nasal discharge Cardiovascular- S1-S2 audible, rate and rhythm regular, no murmur Respiratory- CTAB, no wheeze or rhonchi Gastrointestinal-nontender, bowel sound+. Nondistended Musculoskeletal-no acute joint swelling or tenderness or redness# Lower extremity- no leg edema Neurological- cranial nerves intact, no acute dysarthria or dysphagia Psychiatry- denies depression or SI or HI Skin- no acute rash or purpura laboratory and microbiology Laboratory Tests 05/01/24 13:00 Test 05/01/24 13:00 Range/Units Serum Glucose 126 H 74-106 mg/dL Problem List/Assessment/Plan Problem List/Assessment/Plan Acute chest pain likely due to NSTEMI type 2 Rule out acute mediastinitis Rule out postpericardiotomy syndrome ( PPS) CAD, DC 9 times, , status post PTCA, status post CABG on 04/22/2024 Diabetes mellitus Type II Hypertension Heart 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 q.h.s. Continue ceftriaxone 1 g IV daily Continue vancomycin 1.25 mg IV q.12 hours Metoprolol 12.5 mg p.o. be Continue colchicine 0.6 mg p.o. q.12 hours Ezetimibe 10 mg p.o. daily Continue famotidine 20 mg p.o. q.12 hours Continue methylprednisolone 12.5 mg p.o. b.i.d. Continue Prilosec 20 mg p.o. b.i.d. Continue other medication as prescribed Goals of care/advance care planning; FULL CODE; discussed with the patient >15 minutes PUD prophylaxis: Famotidine DVT prophylaxis: Lovenox Plan discussed with Dr. Najera, nursing staff, patient Total time spent on patient evaluation, chart review, assessment and plan, discussion discussion >30 minutes Plan discussed with: Patient Plan discussed with: Patient, Other Date of Service: May 01, 2024 Billing Provider: JYOTHI NAJERA MD Common Visit Codes: [id number] INP/OBS CARE(HIGH) MARILEE BETANCOURT RESIDENT May 01, 2024 17:49 JYTOHI NAJERA MD May 02, 2024 10:27
[2024-05-01 18:43] VITALS: BP 102/63; PULSE 88; RESP 18; TEMP 98.7; O2SAT 98
[2024-05-01 18:46] VITALS: BP 107/63; PULSE 88; RESP 18; TEMP 98.7; O2SAT 98
[2024-05-01 20:00] VITALS: PULSE 94; RESP 18; O2SAT 93
[2024-05-01 21:00] VITALS: BP 115/63; PULSE 94; RESP 18; TEMP 98.5; O2SAT 93
[2024-05-01] MEDS: diphenhdrAMINE HCL 25 MG CAP PO SCH (21:18)
[2024-05-01] MEDS: COLCHICINE 0.6 MG CAP PO SCH (21:19)
[2024-05-01] MEDS: FAMOTIDINE 20 MG TAB PO SCH (21:20)
[2024-05-01] MEDS: ATORVASTATIN 20 MG TAB PO SCH (21:20)
[2024-05-01 22:11] LABS: Erythrocyte Sedimentation Rate 37 mm/hr (0-20)
[2024-05-02] VITALS (8 sets, daily range): BP systolic 98–150; BP diastolic 63–81; PULSE 70–104; RESP 16–19; TEMP 97.3–98.3; O2SAT 95–98
[2024-05-02] MEDS: VANCOMYCIN 1.25GM/250ML 250 ML IV SCH
[2024-05-02 06:59] LABS: Basophils # (auto) 0 10 ^3/uL (0-0.2); Basophils % (auto) 0.2 % (0.0-2.0); Eosinophils # (auto) 0 10 ^3/uL (0-0.8); White Blood Cell 17.8 10^3/uL (4.4-10.8)
[2024-05-02 07:02] LABS: Eosinophils % (auto) 0.1 % (0.0-7.0); Hematocrit 26.5 % (41.0-53.0); Lymphocytes % (auto) 5.4 % (10.0-50.0); Mean Corpuscular Hemoglobin 32.1 pg (28.0-32.0); Mean Corpuscular Hgb Conc. 33.8 g/dL (32.0-36.0); Mean Corpuscular Volume 94.9 fL (80.0-100.0); Monocytes # (auto) 0.8 10 ^3/uL (0-1.3); Monocytes % (auto) 4.2 % (0.0-12.0); Neutrophils # (auto) 16.1 10 ^3/uL (1.6-8.6); Neutrophils % (auto) 90.1 % (37.0-80.0); Platelet Count (auto) 553 10^3/uL (140-450); Red Blood Cells 2.79 10^6/uL (4.5-5.90); Red Cell Distribution Width 13.8 % (11.8-14.3)
[2024-05-02 07:32] LABS: Anion Gap 7 (5-15); Aspartate Aminotransferase 22 U/L (13-40); BUN/Creatinine Ratio 17.5 (10.0-20.0); Bilirubin, Total 0.4 mg/dL (0.2-1.0); Blood Urea Nitrogen 18 mg/dL (9-23); Calcium 9.7 mg/dL (8.7-10.4); Carbon Dioxide 26 mmol/L (20-31); Magnesium 2.1 mg/dL (1.6-2.6); Total Protein 5.8 g/dL (5.7-8.2)
[2024-05-02 07:35] LABS: Albumin 3.9 g/dL (3.2-4.8)
[2024-05-02 08:52] LABS: Alanine Aminotransferase 54 U/L (7-40); Alkaline Phosphatase 119 U/L (46-116); Chloride 100 mmol/L (98-107); Glucose 148 mg/dL (74-106); Potassium 4.7 mmol/L (3.5-5.1); Sodium 133 mmol/L (136-145)
[2024-05-02] MEDS: FAMOTIDINE (10MG/ML) 2ML VL IV SCH (10:00)
[2024-05-02] MEDS: EZETIMIBE 10 MG TAB PO SCH (10:00)
[2024-05-02] MEDS: cefTRIAXone 1GM/50ML D5W 50 ML IV SCH (10:03)
[2024-05-02] MEDS: methylPREDNISolone SOD SUCC 40 MG/ML VL IV SCH (10:04)
--- NOTE | 2024-05-02 12:03 | DVHPN2 ---
Consult Progress Note Subjective Other Systems: Patient is still having episodes of chest pain. No new cardiac complaints Objective vital signs Vital Sign Date Time Temp Pulse Resp B/P (MAP) Pulse Ox O2 Delivery O2 Flow Rate FiO2 05/02/24 10:49 72 18 117/64 05/02/24 09:00 98.2 98 98.2 05/01/24 20:00 Nasal Cannula* 4 36 Total Intake and Output 05/01/24 05/01/24 05/02/24 15:00 23:00 07:00 Intake Total 400 ml 867 ml Output Total 825 ml Balance 400 ml 42 ml medications Current Medications Medications Dose Ordered Sig/Dionisio Route Start Time Stop Time Status Last Admin Dose Admin Nitroglycerin 0.4 mg Q5MINP PRN SL 05/01/24 04:15 Morphine Sulfate 2 mg Q30M PRN IV 05/01/24 04:15 05/01/24 15:52 2 MG Atorvastatin Calcium 80 mg HS PO 05/01/24 22:00 05/01/24 21:20 80 MG Metoprolol Tartrate 12.5 mg BID PO 05/01/24 10:00 05/02/24 10:02 12.5 MG Ticagrelor 90 mg BID PO 05/01/24 10:00 05/02/24 10:02 90 MG Aspirin 81 mg DAILY PO 05/01/24 10:00 05/02/24 10:03 81 MG Morphine Sulfate 2 mg Q4HPRN PRN IV 05/01/24 04:15 05/02/24 10:49 2 MG Acetaminophen/ Hydrocodone Bitart 1 tab Q4HP PRN PO 05/01/24 04:15 05/01/24 11:39 1 TAB Ondansetron HCl 4 mg Q6HPRN PRN IV 05/01/24 05:00 05/02/24 01:47 4 MG Famotidine 20 mg DAILY IV 05/02/24 10:00 Enoxaparin Sodium 40 mg DAILY SC 05/01/24 10:00 05/02/24 10:04 40 MG Colchicine 0.6 mg Q12HR PO 05/01/24 22:00 05/02/24 10:03 0.6 MG Vancomycin HCl 0 ml @ 0 mls/hr UD IV 05/01/24 10:45 Ceftriaxone Sodium 50 ml @ 100 mls/hr DAILY@09 IV 05/02/24 09:00 05/02/24 10:03 100 MLS/HR EZETIMIBE 10 mg DAILY PO 05/02/24 10:00 Diphenhydramine HCl 25 mg BID PO 05/01/24 22:00 05/02/24 10:02 25 MG Famotidine 20 mg Q12HR PO 05/01/24 22:00 05/02/24 10:02 20 MG Methylprednisolone Sodium Succinate 40 mg DAILY IV 05/02/24 10:00 05/02/24 10:04 40 MG Vancomycin HCl 250 ml @ 200 mls/hr Q12H IV 05/02/24 00:00 05/02/24 00:00 200 MLS/HR Examination: GENERAL:Normal, LUNGS:Normal, CVS:Normal, SKIN:Abnormal (Midline chest incision site ), NEURO:Normal laboratory and microbiology Laboratory Tests 05/02/24 06:35 Test 05/02/24 06:35 Range/Units Serum Glucose 148 H 74-106 mg/dL Problem List/Assessment/Plan Problem List/Assessment/Plan NSTEMI -->Serial troponin --> Possible coronary angiogram on Saturday --> Contrast dye allergies --> prep for angiogram --> Benedryl 25 mg bid --> Methylprednisolone : 40 mg daily --> Famotidine 20 mg BID --> Rule out incisional wound infections. will continue to monitor over the weekend for possible LHC on 05/04/2024 Rule out acute mediastinitis --> CTA with contrast: Contrast dye allergies --> ESR: 43; CRP: 1.53 --> Blood culture:pending --> wound swab --> colchicine .6mg bid --> Vancomycin per pharmacy --> Ceftriaxone Rule out postpericardiotomy syndrome ( PPS) --> CABG on 04/22 at [facility] --> History of 9 myocardial infarctions and 11 Stents --> Continue DAPT, statin and ezetimibe, BB Diabetes mellitus Type II --> Hgb1 A1c: 6.7% Hypertension --> Current BP: 117/72 --> Continue Metoprolol SIRS --> WBC: 17.8 --> Continue management per Primary team Echocardiogram reveals EF 50%. Thank you for allowing us to participate in the care of this patient. Please call if you have any questions or concerns. Plan discussed with: Patient Date of Service: May 02, 2024 Billing Provider: PETER WEST MD Common Visit Codes: [id number] INP/OBS CARE(HIGH) CHANDA GUPTA [employer] May 02, 2024 12:03
--- NOTE | 2024-05-02 14:28 | DVHPNRES ---
Progress Note Date Seen: May 02, 2024 Resident Creating Document: MARILEE BETANCOURT RESIDENT Medical Necessity Reason Pt with a Central, PICC or Fol: No Subjective Review of Systems Patient is 48 years old male with past medical history of coronary artery disease, [place] 9 times, status post PTCA times 11, most recent [place] on 04/03/24 and had a CABG at [facility] on April 22, 2024 and discharged on 04/28/2024, hypertension, diabetes mellitus type 2, hyperlipidemia, history of diverticulitis came with a complaint of chest pain and shortness of breaths. As per patient he has been having chest pain since midnight which woke him up from the sleep. Pain lasted about 30 minute and came back and woke him up from sleep in 30 minutes. Chest pain was central, 10/10, pressure-like, radiating to the left side of the arm. Patient's chest pain was also associated with shortness of breath. Patient denied any fever, palpitation, cough, dysuria, acute joint pain or swelling, rash, dysarthria or change in vision. Patient also reported that has been feeling some exertional shortness of breath since yesterday morning. She lab workup revealed WBC 14.6, hemoglobin 8.5> 9.0, potassium 3.4, ALT 51, troponin I 303, INR 1.01, CRP 1.53, TSH 1.95, TG 186, BNP 226, HGB A1c 6.7. EKG sinus rhythm, no acute ST elevation or depression.No acute cardiopulmonary abnormality. Echo 2D revealed-Ejection fraction is estimated at 60%. paradoxical septal wall motion abnormality. grade II diastolic dysfunction. The right ventricle is not well visualized. RV systolic pressure is estimated at 24 mm Hg. PMH-coronary artery disease, MIx 9 times, status post PTCA x11, most recent [place] on 04/03/24 and had a CABG at [facility] on April 22, 2024 and discharged on 04/28/2024, hypertension, diabetes mellitus type 2, hyperlipidemia, history of diverticulitis PSH- Multiple PTCA, CABG, sigmoid colectomy, left lung thoracotomy Allergy- iodinated diagnostic agent, metronidazole, pantoprazole Home medications: Metoprolol tartrate 12.5 mg b.i.d., aspirin 81 mg, Brilinta 90 mg b.i.d., atorvastatin 80 mg, furosemide 20 mg q.d. Personal History/ Social History- Patient lives with family and denies using drugs. Occasional smoker and alcohol drinker Patient was seen today at the bedside. Patient Cardiovascular- deny cough or palpitation Respiratory- denies cough or wheezing Gastrointestinal- denies any rectal bleeding, nausea or vomiting Musculoskeletal-denies acute joint swelling or tenderness or redness Neurological- denies acute dysarthria, dysphagia, change in vision Psychiatry- denies depression or SI or HI Skin- denies acute rash or purpura Patient was seen today for clinical evaluation. Labs and chart reviewed. Patient reported feeling better today. WBC 17.8, stable 9.0, pending FOBT report. Ordered for PT evaluation Patient was seen by Cardiology, recommendation reviewed and appreciated. MRSA negative. Lactulose 60 mL was ordered as patient complained for constipation. Objective vital signs Vital Sign Date Time Temp Pulse Resp B/P (MAP) Pulse Ox O2 Delivery O2 Flow Rate FiO2 05/02/24 13:00 97.3 82 19 150/81 (104) 97 97.3 05/01/24 20:00 Nasal Cannula* 4 36 Total Intake and Output 05/01/24 05/01/24 05/02/24 15:00 23:00 07:00 Intake Total 400 ml 867 ml Output Total 825 ml Balance 400 ml 42 ml medications Current Medications Medications Dose Ordered Sig/Dionisio Route Start Time Stop Time Status Last Admin Dose Admin Nitroglycerin 0.4 mg Q5MINP PRN SL 05/01/24 04:15 Morphine Sulfate 2 mg Q30M PRN IV 05/01/24 04:15 05/01/24 15:52 2 MG Atorvastatin Calcium 80 mg HS PO 05/01/24 22:00 05/01/24 21:20 80 MG Metoprolol Tartrate 12.5 mg BID PO 05/01/24 10:00 05/02/24 10:02 12.5 MG Ticagrelor 90 mg BID PO 05/01/24 10:00 05/02/24 10:02 90 MG Aspirin 81 mg DAILY PO 05/01/24 10:00 05/02/24 10:03 81 MG Morphine Sulfate 2 mg Q4HPRN PRN IV 05/01/24 04:15 05/02/24 10:49 2 MG Acetaminophen/ Hydrocodone Bitart 1 tab Q4HP PRN PO 05/01/24 04:15 05/01/24 11:39 1 TAB Ondansetron HCl 4 mg Q6HPRN PRN IV 05/01/24 05:00 05/02/24 01:47 4 MG Famotidine 20 mg DAILY IV 05/02/24 10:00 Enoxaparin Sodium 40 mg DAILY SC 05/01/24 10:00 05/02/24 10:04 40 MG Colchicine 0.6 mg Q12HR PO 05/01/24 22:00 05/02/24 10:03 0.6 MG Vancomycin HCl 0 ml @ 0 mls/hr UD IV 05/01/24 10:45 Ceftriaxone Sodium 50 ml @ 100 mls/hr DAILY@09 IV 05/02/24 09:00 05/02/24 10:03 100 MLS/HR EZETIMIBE 10 mg DAILY PO 05/02/24 10:00 Diphenhydramine HCl 25 mg BID PO 05/01/24 22:00 05/02/24 10:02 25 MG Famotidine 20 mg Q12HR PO 05/01/24 22:00 05/02/24 10:02 20 MG Methylprednisolone Sodium Succinate 40 mg DAILY IV 05/02/24 10:00 05/02/24 10:04 40 MG Vancomycin HCl 250 ml @ 200 mls/hr Q12H IV 05/02/24 00:00 05/02/24 00:00 200 MLS/HR Examination General examination- awake, alert, oriented, conversant, sternal incision tray from recent CABG HEENT- PEERLA, no acute nasal discharge Cardiovascular- S1-S2 audible, rate and rhythm regular, no murmur Respiratory- CTAB, no wheeze or rhonchi Gastrointestinal-nontender, bowel sound+. Nondistended Musculoskeletal-no acute joint swelling or tenderness or redness# Lower extremity- no leg edema Neurological- cranial nerves intact, no acute dysarthria or dysphagia Psychiatry- denies depression or SI or HI Skin- no acute rash or purpura In the presence of Territory Account Manager Jovanni RN per rectal examination was done and no active bleeding was noted. laboratory and microbiology Laboratory Tests 05/02/24 06:35 Test 05/02/24 06:35 Range/Units Serum Glucose 148 H 74-106 mg/dL Microbiology Date/Time Source Procedure Growth Status 05/02/24 06:30 Nose MRSA Screen - Final Complete Problem List/Assessment/Plan Problem List/Assessment/Plan Acute chest pain likely due to NSTEMI type 2 Rule out acute mediastinitis Rule out postpericardiotomy syndrome ( PPS) CAD, [place] 9 times, , status post PTCA, status post CABG on 04/22/2024 Diabetes mellitus Type II Hypertension Heart 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 q.h.s. Continue ceftriaxone 1 g IV daily Continue vancomycin 1.25 mg IV q.12 hours Metoprolol 12.5 mg p.o. be Continue colchicine 0.6 mg p.o. q.12 hours Ezetimibe 10 mg p.o. daily Continue famotidine 20 mg p.o. q.12 hours Continue methylprednisolone 12.5 mg p.o. b.i.d. Continue Prilosec 20 mg p.o. b.i.d. Continue other medication as prescribed Goals of care/advance care planning; FULL CODE; discussed with the patient >15 minutes PUD prophylaxis: Famotidine DVT prophylaxis: Lovenox Plan discussed with Dr. Mart, nursing staff, patient Total time spent on patient evaluation, chart review, assessment and plan, discussion discussion >30 minutes Plan discussed with: Patient Plan discussed with: Patient, Other (RN) My Orders My Orders Orders - MARILEE BETANCOURT Procedure Category Date Status Time Stool Occult Blood LAB 05/01/24 Logged 17:57 Hepatitis C Antibody LAB 05/01/24 In Process 19:52 Hepatitis B Surface LAB 05/01/24 In Process Antibody 19:52 Pt Request For Service PT 05/02/24 Logged 12:35 MARILEE BETANCOURT May 02, 2024 14:28
[2024-05-02] MEDS: LACTULOSE 20Gm/30ML SOLN PO ONE (14:52)
--- NOTE | 2024-05-02 16:51 | DVHDSRES ---
Discharge Summary Date of Admission Resident Creating Document: MARILEE BETANCOURT RESIDENT May 01, 2024 at 04:04 Date of Discharge: May 02, 2024 Admitting Diagnosis Acute Chest pain- rule out acute coronary syndrome Labs/Diagnostic Data: Laboratory Results Test 05/02/24 15:19 05/02/24 06:35 05/01/24 20:05 05/01/24 10:30 Magnesium Level 2.0 mg/dL (1.6-2.6) White Blood Count 17.8 10^3/uL (4.4-10.8) Red Blood Count 2.79 10^6/uL (4.5-5.90) Hemoglobin 9.0 g/dL (13.5-17.5) Hematocrit 26.5 % (41.0-53.0) Mean Corpuscular Volume 94.9 fL (80.0-100.0) Mean Corpuscular Hemoglobin 32.1 pg (28.0-32.0) Mean Corpuscular Hemoglobin Concent 33.8 g/dL (32.0-36.0) Red Cell Distribution Width 13.8 % (11.8-14.3) Platelet Count 553 10^3/uL (140-450) Mean Platelet Volume 7.8 fL (6.9-10.8) Neutrophils (%) (Auto) 90.1 % (37.0-80.0) Lymphocytes (%) (Auto) 5.4 % (10.0-50.0) Monocytes (%) (Auto) 4.2 % (0.0-12.0) Eosinophils (%) (Auto) 0.1 % (0.0-7.0) Basophils (%) (Auto) 0.2 % (0.0-2.0) Neutrophils # (Auto) 16.1 10 ^3/uL (1.6-8.6) Lymphocytes # (Auto) 1.0 10 ^3/uL (0.4-5.4) Monocytes # (Auto) 0.8 10 ^3/uL (0-1.3) Eosinophils # (Auto) 0 10 ^3/uL (0-0.8) Basophils # (Auto) 0 10 ^3/uL (0-0.2) Nucleated Red Blood Cells 0.0 % Sodium Level 133 mmol/L (136-145) Potassium Level 4.7 mmol/L (3.5-5.1) Chloride Level 100 mmol/L (98-107) Carbon Dioxide Level 26 mmol/L (20-31) Anion Gap 7 (5-15) Blood Urea Nitrogen 18 mg/dL (9-23) Creatinine 1.03 mg/dL (0.700-1.30) Glomerular Filtration Rate Calc 89 mL/min (>90) BUN/Creatinine Ratio 17.5 (10.0-20.0) Serum Glucose 148 mg/dL (74-106) Calcium Level 9.7 mg/dL (8.7-10.4) Total Bilirubin 0.4 mg/dL (0.2-1.0) Aspartate Amino Transferase (AST) 22 U/L (13-40) Alanine Aminotransferase (ALT) 54 U/L (7-40) Alkaline Phosphatase 119 U/L (46-116) Troponin I High Sensitivity 219 ng/L (</=54) Total Protein 5.8 g/dL (5.7-8.2) Albumin 3.9 g/dL (3.2-4.8) Erythrocyte Sedimentation Rate 37 mm/hr (0-20) Influenza Type A Antigen Negative (Negative) Influenza Type B Antigen Negative (Negative) SARS-CoV-2 Antigen (Rapid) Negative (NEGATIVE) Test 05/01/24 07:25 05/01/24 02:45 05/01/24 01:47 Urine Color Light-yellow (Yellow) Urine Clarity Clear (Clear) Urine pH 7.0 (5.0-9.0) Urine Specific [place] 1.010 (1.001-1.035) Urine Protein Negative (Negative) Urine Ketones Negative (Negative) Urine Blood Negative /uL (Negative) Urine Nitrite Negative (Negative) Urine Bilirubin Negative (Negative) Urine Urobilinogen Normal mg/dL (Negative) Urine Leukocyte Esterase Negative /uL (Negative) Urine RBC 1 /hpf (0 - 3) Urine WBC <1 /hpf (0 - 3) Urine Squamous Epithelial Cells None seen /hpf (<5) Urine Bacteria Few /hpf (None Seen) Urine Glucose Normal mg/dL (Normal) Urine Opiates Screen Neg (NEGATIVE) Urine Fentanyl Screen Neg (NEGATIVE) Urine Barbiturates Screen Neg (NEGATIVE) Urine Phencyclidine Screen Neg (NEGATIVE) Urine Amphetamines Screen Neg (NEGATIVE) Urine Benzodiazepines Screen Neg (NEGATIVE) Urine Cocaine Screen Neg (NEGATIVE) Urine Cannabinoids Screen Neg (NEGATIVE) Hemoglobin A1c 6.7 % A1C (<5.7) C-Reactive Protein High Sensitivity 1.53 mg/dL (<1.0) B-Type Natriuretic Peptide 226.42 pg/mL (0-100) Triglycerides Level 186 mg/dL (< 150) Cholesterol Level 98 mg/dL (< 200) LDL Cholesterol 50 mg/dL (< 100) HDL Cholesterol 23 mg/dL (40-59) Thyroid Stimulating Hormone (TSH) 1.95 uIU/mL (0.55-4.78) Prothrombin Time 10.7 sec (9.3-11.8) Prothrombin Time INR 1.01 (0.9-1.15) Activated Partial Thromboplast Time 22.4 SEC (24.5-34.5) Other Laboratory Tests 05/02/24 06:35 Brief Hx & Hospital Course: Patient is 48 years old male with past medical history of coronary artery disease, [place] 9 times, status post PTCA times 11, most recent [place] on 04/03/24 and had a CABG at [facility] on April 22, 2024 and discharged on 04/28/2024, hypertension, diabetes mellitus type 2, hyperlipidemia, history of diverticulitis came with a complaint of chest pain and shortness of breaths. As per patient he has been having chest pain since midnight which woke him up from the sleep. Pain lasted about 30 minute and came back and woke him up from sleep in 30 minutes. Chest pain was central, 10/10, pressure-like, radiating to the left side of the arm. Patient's chest pain was also associated with shortness of breath. Patient denied any fever, palpitation, cough, dysuria, acute joint pain or swelling, rash, dysarthria or change in vision. Patient also reported that has been feeling some exertional shortness of breath since yesterday morning. She lab workup revealed WBC 14.6, hemoglobin 8.5> 9.0, potassium 3.4, ALT 51, troponin I 303, INR 1.01, CRP 1.53, TSH 1.95, TG 186, BNP 226, HGB A1c 6.7. EKG sinus rhythm, no acute ST elevation or depression.No acute cardiopulmonary abnormality. Echo 2D revealed-Ejection fraction is estimated at 60%. paradoxical septal wall motion abnormality. grade II diastolic dysfunction. The right ventricle is not well visualized. RV systolic pressure is estimated at 24 mm Hg. During hospitalization patient was treated conservatively with IV antibiotic and other medications. Patient with a hold sitting leukocytosis, today WBC 17.8, globin stable 9.0, Ordered for PT evaluation Patient was seen by Cardiology, recommendation reviewed and appreciated. MRSA negative. Lactulose 60 mL was ordered as patient complained for constipation. Patient with ongoing chest pain. Patient with suspected acute mediastinitis status post CABG. Patient might need cardiac surgery again. Patient was transferred to higher level of care to [facility] where patient had the CABG. Social service consult was in place. Patient was counseled about current medical condition and informed about the plan of care. PMH-coronary artery disease, MIx 9 times, status post PTCA x11, most recent OR on 04/03/24 and had a CABG at [facility] on April 22, 2024 and discharged on 04/28/2024, hypertension, diabetes mellitus type 2, hyperlipidemia, history of diverticulitis PSH- Multiple PTCA, CABG, sigmoid colectomy, left lung thoracotomy Allergy- iodinated diagnostic agent, metronidazole, pantoprazole Home medications: Metoprolol tartrate 12.5 mg b.i.d., aspirin 81 mg, Brilinta 90 mg b.i.d., atorvastatin 80 mg, furosemide 20 mg q.d. Personal History/ Social History- Patient lives with family and denies using drugs. Occasional smoker and alcohol drinker Patient was seen today at the bedside. Patient Cardiovascular- deny cough or palpitation Respiratory- denies cough or wheezing Gastrointestinal- denies any rectal bleeding, nausea or vomiting Musculoskeletal-denies acute joint swelling or tenderness or redness Neurological- denies acute dysarthria, dysphagia, change in vision Psychiatry- denies depression or SI or HI Skin- denies acute rash or purpura General examination- awake, alert, oriented, conversant, sternal incision tray from recent CABG HEENT- PEERLA, no acute nasal discharge Cardiovascular- S1-S2 audible, rate and rhythm regular, no murmur Respiratory- CTAB, no wheeze or rhonchi Gastrointestinal-nontender, bowel sound+. Nondistended Musculoskeletal-no acute joint swelling or tenderness or redness# Lower extremity- no leg edema Neurological- cranial nerves intact, no acute dysarthria or dysphagia Psychiatry- denies depression or SI or HI Skin- no acute rash or purpura In the presence of Car Filler Jovanni RN per rectal examination was done and no active bleeding was noted. laboratory and microbiology Operations or Procedures Ph: [phone] DIAGNOSTIC IMAGING Diagnostic Imaging Report : [id number] Signed PATIENT: KELLY OTERO ACCT: [id number] UNIT: [id number] : 1975 LOC: ER ROOM / BED: / AGE / SEX: 48 / M ADM STATUS: REG ER SERVICE 7 ORDERING PHYSICIAN: MATTHEW MONET MD PROCEDURE(s): CXRP - CHEST PORTABLE REASON: chest pain ORDER NUMBER(s): [id number], ACCESSION NUMBER(s): [id number] EXAM: XY CHEST PORTABLE CLINICAL HISTORY: chest pain TECHNIQUE: Single AP view of the chest WID: COMPARISON: None FINDINGS: Lines and tubes: Prior median sternotomy and CABG. Chest: The heart size and pulmonary vasculature is within normal limits. No pleural effusion, pneumothorax, or consolidation. The osseous structures are grossly intact. IMPRESSION: No acute cardiopulmonary abnormality. ATED BY: RANDAL WEIR MD DICTATED DATE/TIME: 05/01/24137 SIGNED BY: RANDAL WEIR MD SIGNED DATE/TIME: 05/01/24137 CC: Condition at Discharge: Higher Level of Care Final Diagnosis/Problems List Acute chest pain likely due to NSTEMI type 2 Suspected acute mediastinitis Rule out postpericardiotomy syndrome ( PPS) CAD, [place] 9 times, , status post PTCA, status post CABG on 04/22/2024 Diabetes mellitus Type II Hypertension Heart 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 diastolic Hyperlipidemia Hypokalemia SIRS Moderate to severe anemia likely from bleeding Diverticulosis Discharge Disposition: Acute Care Facility Discharge Instruct/Medications Diet: Consistent carbohydrate, Cardiac 2g Na,low cholest Activity: Light activity Follow Up/Referral: Being transferred to higher level of care to [facility] possible acute mediastinitis, patient had CABG at [facility] Medications: Continue current medication Discharge Statement: "Patient was advised to return to the ER or call 911 if any headaches, dizziness, shortness of breath, chest pain, abdominal pain, bleeding, fevers, or worsening of medical condition. Patient was counseled about treatment plan, medications, possible side effects, patientverbalized understanding. All questions were answered to the best of my ability. This discharge took greater then 30 minutes in planning, reviewing documentation, counseling the patient, and discussing with other team members." ASSESSMENT ASSESSMENT Assessment Acute chest pain likely due to NSTEMI type 2 Suspected acute mediastinitis Rule out postpericardiotomy syndrome ( PPS) CAD, [place] 9 times, , status post PTCA, status post CABG on 04/22/2024 Diabetes mellitus Type II Hypertension Heart 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 diastolic Hyperlipidemia Hypokalemia SIRS Moderate to severe anemia likely from bleeding Diverticulosis Date of Service: May 02, 2024 Billing Provider: JYOTHI NAJERA MD Common Visit Codes: 21680-JRM/OBS DISCH DAY >30min MARILEE BETANCOURT RESIDENT May 02, 2024 16:51 JYOTHI NAJERA MD May 03, 2024 10:25
[2024-05-03] VITALS (8 sets, daily range): BP systolic 106–129; BP diastolic 59–80; PULSE 74–92; RESP 17–20; TEMP 97.8–99.3; O2SAT 96–97
[2024-05-03 07:31] LABS: Chloride 103 mmol/L (98-107); Potassium 4.6 mmol/L (3.5-5.1); Sodium 136 mmol/L (136-145)
[2024-05-03 07:32] LABS: Anion Gap 6 (5-15); Basophils # (auto) 0 10 ^3/uL (0-0.2); Basophils % (auto) 0.1 % (0.0-2.0); Carbon Dioxide 27 mmol/L (20-31); Eosinophils % (auto) 0.3 % (0.0-7.0)
[2024-05-03 07:33] LABS: Calcium 9.4 mg/dL (8.7-10.4)
[2024-05-03 07:35] LABS: Eosinophils # (auto) 0 10 ^3/uL (0-0.8); Hematocrit 23.8 % (41.0-53.0); Hemoglobin 7.9 g/dL (13.5-17.5); Lymphocytes # (auto) 1.3 10 ^3/uL (0.4-5.4); Lymphocytes % (auto) 7.8 % (10.0-50.0); Mean Corpuscular Hgb Conc. 33.3 g/dL (32.0-36.0); Mean Corpuscular Volume 95.9 fL (80.0-100.0); Monocytes % (auto) 5.6 % (0.0-12.0); Neutrophils # (auto) 14.9 10 ^3/uL (1.6-8.6); Neutrophils % (auto) 86.2 % (37.0-80.0); Platelet Count (auto) 542 10^3/uL (140-450); Red Blood Cells 2.48 10^6/uL (4.5-5.90); Red Cell Distribution Width 14.4 % (11.8-14.3); White Blood Cell 17.3 10^3/uL (4.4-10.8)
[2024-05-03 07:38] LABS: BUN/Creatinine Ratio 17.6 (10.0-20.0); Blood Urea Nitrogen 18 mg/dL (9-23)
[2024-05-03 07:41] LABS: Glucose 155 mg/dL (74-106)
--- NOTE | 2024-05-03 14:16 | DVHPNRES ---
Progress Note Date Seen: May 03, 2024 Resident Creating Document: MERCY IZAGUIRRE RESIDENT Medical Necessity Reason Pt with a Central, PICC or Fol: No Subjective Review of Systems Patient is 48 years old male with past medical history of coronary artery disease, HI 9 times, status post PTCA times 11, most recent HI on 04/03/24 and had a CABG at [facility] on April 22, 2024 and discharged on 04/28/2024, hypertension, diabetes mellitus type 2, hyperlipidemia, history of diverticulitis came with a complaint of chest pain and shortness of breaths. As per patient he has been having chest pain since midnight which woke him up from the sleep. Pain lasted about 30 minute and came back and woke him up from sleep in 30 minutes. Chest pain was central, 10/10, pressure-like, radiating to the left side of the arm. Patient's chest pain was also associated with shortness of breath. Patient denied any fever, palpitation, cough, dysuria, acute joint pain or swelling, rash, dysarthria or change in vision. Patient also reported that has been feeling some exertional shortness of breath since yesterday morning. She lab workup revealed WBC 14.6, hemoglobin 8.5> 9.0, potassium 3.4, ALT 51, troponin I 303, INR 1.01, CRP 1.53, TSH 1.95, TG 186, BNP 226, HGB A1c 6.7. EKG sinus rhythm, no acute ST elevation or depression.No acute cardiopulmonary abnormality. Echo 2D revealed-Ejection fraction is estimated at 60%. paradoxical septal wall motion abnormality. grade II diastolic dysfunction. The right ventricle is not well visualized. RV systolic pressure is estimated at 24 mm Hg. PMH-coronary artery disease, MIx 9 times, status post PTCA x11, most recent HI on 04/03/24 and had a CABG at [facility] on April 22, 2024 and discharged on 04/28/2024, hypertension, diabetes mellitus type 2, hyperlipidemia, history of diverticulitis PSH- Multiple PTCA, CABG, sigmoid colectomy, left lung thoracotomy Allergy- iodinated diagnostic agent, metronidazole, pantoprazole Home medications: Metoprolol tartrate 12.5 mg b.i.d., aspirin 81 mg, Brilinta 90 mg b.i.d., atorvastatin 80 mg, furosemide 20 mg q.d. Personal History/ Social History- Patient lives with family and denies using drugs. Occasional smoker and alcohol drinker Patient was seen today at the bedside. Patient Cardiovascular- deny cough or palpitation Respiratory- denies cough or wheezing Gastrointestinal- denies any rectal bleeding, nausea or vomiting Musculoskeletal-denies acute joint swelling or tenderness or redness Neurological- denies acute dysarthria, dysphagia, change in vision Psychiatry- denies depression or SI or HI Skin- denies acute rash or purpura Patient was seen examined at bedside, Labs and chart reviewed. Patient reported feeling better today. Patient was seen by Cardiology, recommendation reviewed and appreciated. Per cardiology possible coronary angiogram on Saturday. Patient with suspected acute mediastinitis status post CABG. Patient might need cardiac surgery again. Patient was transferred to higher level of care to [facility] where patient had the CABG. Ordered CT chest without contrast ([facility] is requesting that) Objective vital signs Vital Sign Date Time Temp Pulse Resp B/P (MAP) Pulse Ox O2 Delivery O2 Flow Rate FiO2 05/03/24 13:15 82 20 111/72 05/03/24 12:33 99.3 97 99.3 05/02/24 20:20 Room Air* 0 21 Total Intake and Output 05/02/24 05/02/24 05/03/24 15:00 23:00 07:00 Intake Total 50 ml 1290 ml 1165 ml Output Total 1020 ml 525 ml Balance 50 ml 270 ml 640 ml medications Current Medications Medications Dose Ordered Sig/Dionisio Route Start Time Stop Time Status Last Admin Dose Admin Nitroglycerin 0.4 mg Q5MINP PRN SL 05/01/24 04:15 Morphine Sulfate 2 mg Q30M PRN IV 05/01/24 04:15 05/01/24 15:52 2 MG Atorvastatin Calcium 80 mg HS PO 05/01/24 22:00 05/02/24 21:55 80 MG Metoprolol Tartrate 12.5 mg BID PO 05/01/24 10:00 05/03/24 09:57 12.5 MG Ticagrelor 90 mg BID PO 05/01/24 10:00 05/03/24 09:57 90 MG Aspirin 81 mg DAILY PO 05/01/24 10:00 05/03/24 09:58 81 MG Morphine Sulfate 2 mg Q4HPRN PRN IV 05/01/24 04:15 05/03/24 13:15 2 MG Acetaminophen/ Hydrocodone Bitart 1 tab Q4HP PRN PO 05/01/24 04:15 05/02/24 22:02 1 TAB Ondansetron HCl 4 mg Q6HPRN PRN IV 05/01/24 05:00 05/03/24 05:35 4 MG Enoxaparin Sodium 40 mg DAILY SC 05/01/24 10:00 05/03/24 09:58 40 MG Colchicine 0.6 mg Q12HR PO 05/01/24 22:00 05/03/24 09:58 0.6 MG Vancomycin HCl 0 ml @ 0 mls/hr UD IV 05/01/24 10:45 Ceftriaxone Sodium 50 ml @ 100 mls/hr DAILY@09 IV 05/02/24 09:00 05/03/24 09:59 100 MLS/HR EZETIMIBE 10 mg DAILY PO 05/02/24 10:00 05/03/24 09:59 10 MG Diphenhydramine HCl 25 mg BID PO 05/01/24 22:00 05/03/24 09:56 25 MG Famotidine 20 mg Q12HR PO 05/01/24 22:00 05/03/24 09:57 20 MG Methylprednisolone Sodium Succinate 40 mg DAILY IV 05/02/24 10:00 05/03/24 09:59 40 MG Vancomycin HCl 250 ml @ 200 mls/hr Q12H IV 05/02/24 00:00 05/03/24 00:55 200 MLS/HR Examination General examination- awake, alert, oriented, conversant, sternal incision tray from recent CABG HEENT- PEERLA, no acute nasal discharge Cardiovascular- S1-S2 audible, rate and rhythm regular, no murmur Respiratory- CTAB, no wheeze or rhonchi Gastrointestinal-nontender, bowel sound+. Nondistended Musculoskeletal-no acute joint swelling or tenderness or redness# Lower extremity- no leg edema Neurological- cranial nerves intact, no acute dysarthria or dysphagia Psychiatry- denies depression or SI or HI Skin- no acute rash or purpura laboratory and microbiology Laboratory Tests 05/03/24 06:56 Test 05/03/24 06:56 Range/Units Serum Glucose 155 H 74-106 mg/dL Microbiology Date/Time Source Procedure Growth Status 05/02/24 06:30 Nose MRSA Screen - Final Complete 05/01/24 13:00 Blood Blood Culture - Preliminary NO GROWTH AFTER 24 HOURS OF INCUBATION. Resulted Problem List/Assessment/Plan Problem List/Assessment/Plan Acute chest pain likely due to NSTEMI type 2 Possible mediastinitis Rule out postpericardiotomy syndrome ( PPS) CAD, HI 9 times, , status post PTCA, status post CABG on 04/22/2024 Diabetes mellitus Type II Hypertension Heart 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 diastolic Hyperlipidemia Hypokalemia SIRS POA Moderate to severe anemia likely from bleeding Diverticulosis Possible coronary angiogram on Saturday Due for CTA with contrast, Patient was transferred to higher level of care to [facility] where patient had the CABG. Ordered CT chest without contrast ([facility] is requesting that) Continue aspirin 81 mg daily Continue atorvastatin 80 mg p.o. q.h.s. Continue ceftriaxone 1 g IV daily Continue vancomycin 1.25 mg IV q.12 hours Metoprolol 12.5 mg p.o. be Continue colchicine 0.6 mg p.o. q.12 hours Ezetimibe 10 mg p.o. daily Continue famotidine 20 mg p.o. q.12 hours Continue methylprednisolone 12.5 mg p.o. b.i.d. Continue Prilosec 20 mg p.o. b.i.d. Continue other medication as prescribed PUD prophylaxis: Famotidine DVT prophylaxis: Lovenox Plan discussed with Dr. Causey Total time spent on patient evaluation, chart review, assessment and plan, discussion for 26 minutes: FULL CODE; Plan discussed with: Patient My Orders My Orders Orders - MERCY IZAGUIRRE RESIDENT Procedure Category Date Status Time Chest Without Contrast CT 05/03/24 Logged 14:01 Date of Service: May 03, 2024 Billing Provider: OMER CAUSEY MD Common Visit Codes: [id number] INP/OBS CARE(HIGH) MERCY IZAGUIRRE RESIDENT May 03, 2024 14:16 OMER CAUSEY MD May 04, 2024 16:54
--- NOTE | 2024-05-03 15:47 | DVH ---
Procedure: CT CHEST WITHOUT CONTRAST Reason for study/Clinical History: Possible Medistinitis Comparison Study: None available at time of dictation. Exam Date: 05/03/2024 02:27 PM TECHNIQUE: Multidetector CT of the chest was performed from the lung apices to the upper abdomen with out the use of intravenous contract. Axial, coronal and sagittal multiplanar reformats were performed . Radiation Dose Information: CT Dose: CTDI volume is 18.36 mGy. Dose-length product is 741.69 mGy*cm The dose indicators for CT are the volume Computed Tomography (CT) Dose Index (CTDIvol) and the Dose Length Product (DLP), and are measured in units of mGy and mGy-cm, respectively. These indicators are not patient dose, but values generated from the CT scanner acquisition factors. The report includes radiation exposure data for exposures received during this examination. FINDINGS: Lower neck: Normal thyroid. Lungs: No focal consolidation, pleural effusion or pneumothorax. Mild stranding in the mediastinal fa t no focal fluid collections. No significant increased tissue density in the mediastinal fat. There are no fluid collections no gas bubbles noted. Anterior to the sternum the soft tissues appear thomas l. Heart/Vascular Structures: Normal heart size. No pericardial effusion. Coronary artery calcifications . Lymph Nodes: No adenopathy Pleura: No pleural effusion or significant pneumothorax. Musculoskeletal: No acute osseous abnormality. Soft tissues: Normal. Upper abdomen: Limited portions of the upper abdomen are unremarkable. IMPRESSION: 1. No significant mediastinal adenopathy. 2. No mediastinal fluid collections. 3. No gas bubbles noted in the mediastinum. 4. Minimal mediastinal stranding in the fat may be secondary to postoperative change and sternal wire sutures. Radiation optimization: All CT scans at this facility use at least one of these dose optimization soy hniques: automated exposure control mA and/or kV adjustment per patient size (includes targeted exam s where dose is matched to clinical indication) or iterative reconstruction.
--- NOTE | 2024-05-03 17:24 | DVHPN2 ---
Consult Progress Note Subjective Other Systems: Patient in normal sinus rhythm on monitor worker. Objective vital signs Vital Sign Date Time Temp Pulse Resp B/P (MAP) Pulse Ox O2 Delivery O2 Flow Rate FiO2 05/03/24 13:45 82 20 111/72 05/03/24 12:33 99.3 97 99.3 05/03/24 08:00 Room Air* 0 21 Total Intake and Output 05/02/24 05/02/24 05/03/24 15:00 23:00 07:00 Intake Total 50 ml 1290 ml 1165 ml Output Total 1020 ml 525 ml Balance 50 ml 270 ml 640 ml medications Current Medications Medications Dose Ordered Sig/Dionisio Route Start Time Stop Time Status Last Admin Dose Admin Nitroglycerin 0.4 mg Q5MINP PRN SL 05/01/24 04:15 Morphine Sulfate 2 mg Q30M PRN IV 05/01/24 04:15 05/01/24 15:52 2 MG Atorvastatin Calcium 80 mg HS PO 05/01/24 22:00 05/02/24 21:55 80 MG Metoprolol Tartrate 12.5 mg BID PO 05/01/24 10:00 05/03/24 09:57 12.5 MG Ticagrelor 90 mg BID PO 05/01/24 10:00 05/03/24 09:57 90 MG Aspirin 81 mg DAILY PO 05/01/24 10:00 05/03/24 09:58 81 MG Morphine Sulfate 2 mg Q4HPRN PRN IV 05/01/24 04:15 05/03/24 13:15 2 MG Acetaminophen/ Hydrocodone Bitart 1 tab Q4HP PRN PO 05/01/24 04:15 05/03/24 16:24 1 TAB Ondansetron HCl 4 mg Q6HPRN PRN IV 05/01/24 05:00 05/03/24 05:35 4 MG Enoxaparin Sodium 40 mg DAILY SC 05/01/24 10:00 05/03/24 09:58 40 MG Colchicine 0.6 mg Q12HR PO 05/01/24 22:00 05/03/24 09:58 0.6 MG Vancomycin HCl 0 ml @ 0 mls/hr UD IV 05/01/24 10:45 Ceftriaxone Sodium 50 ml @ 100 mls/hr DAILY@09 IV 05/02/24 09:00 05/03/24 09:59 100 MLS/HR EZETIMIBE 10 mg DAILY PO 05/02/24 10:00 05/03/24 09:59 10 MG Diphenhydramine HCl 25 mg BID PO 05/01/24 22:00 05/03/24 09:56 25 MG Famotidine 20 mg Q12HR PO 05/01/24 22:00 05/03/24 09:57 20 MG Methylprednisolone Sodium Succinate 40 mg DAILY IV 05/02/24 10:00 05/03/24 09:59 40 MG Vancomycin HCl 250 ml @ 200 mls/hr Q12H IV 05/02/24 00:00 05/03/24 14:14 200 MLS/HR Examination: GENERAL:Normal, LUNGS:Normal, CVS:Normal, NEURO:Normal laboratory and microbiology Laboratory Tests 05/03/24 06:56 Test 05/03/24 06:56 Range/Units Serum Glucose 155 H 74-106 mg/dL Problem List/Assessment/Plan Problem List/Assessment/Plan NSTEMI -->Serial troponin --> Possible coronary angiogram on Saturday --> Contrast dye allergies --> prep for angiogram --> Benedryl 25 mg bid --> Methylprednisolone : 40 mg daily --> Famotidine 20 mg BID --> Rule out incisional wound infections. will continue to monitor over the weekend for possible LHC on 05/04/2024 Rule out acute mediastinitis --> CTA with contrast: Contrast dye allergies --> ESR: 43; CRP: 1.53 --> Blood culture:pending --> wound swab --> colchicine .6mg bid --> Vancomycin per pharmacy --> Ceftriaxone Rule out postpericardiotomy syndrome ( PPS) --> CABG on 04/22 at [facility] --> History of 9 myocardial infarctions and 11 Stents --> Continue DAPT, statin and ezetimibe, BB Diabetes mellitus Type II --> Hgb1 A1c: 6.7% Hypertension --> Current BP: 117/72 --> Continue Metoprolol SIRS --> WBC: 17.3 --> Continue management per Primary team Echocardiogram reveals EF 50%. Primary care team has initiated transfer to higher level of care at [facility]. Awaiting acceptance and bed availability. Thank you for allowing us to participate in the care of this patient. Please call if you have any questions or concerns. This medical document was created using an electronic medical record system with voice recognition software and computerized dictation system. Although this document has been carefully reviewed, there might still be some phonetic and typographical errors. Occasional wrong-word or ``sound-alike substitutions may have occurred due to the inherent limitations of voice recognition software. These areas are purely typographical due to imperfections of the software programs and do not reflect any compromise in the patient's medical care. Please read the chart carefully and recognize, using context, where these substitutions have occurred. Plan discussed with: Patient Date of Service: May 03, 2024 Billing Provider: CHANDA GUPTA Common Visit Codes: [id number] INP/OBS CARE(HIGH) CHANDA GUPTA May 03, 2024 17:24
[2024-05-04] VITALS (11 sets, daily range): BP systolic 104–145; BP diastolic 56–92; PULSE 66–99; RESP 14–20; TEMP 97.6–98.3; O2SAT 95–100
[2024-05-04 08:20] LABS: Anion Gap 8 (5-15); Carbon Dioxide 25 mmol/L (20-31); Chloride 105 mmol/L (98-107); Sodium 138 mmol/L (136-145)
[2024-05-04 08:21] LABS: Calcium 9.5 mg/dL (8.7-10.4)
[2024-05-04 08:26] LABS: BUN/Creatinine Ratio 12.9 (10.0-20.0); Blood Urea Nitrogen 13 mg/dL (9-23); Magnesium 2.2 mg/dL (1.6-2.6)
[2024-05-04 08:32] LABS: Eosinophils # (auto) 0.1 10 ^3/uL (0-0.8); Eosinophils % (auto) 0.3 % (0.0-7.0); Hemoglobin 9.2 g/dL (13.5-17.5); Lymphocytes # (auto) 2.2 10 ^3/uL (0.4-5.4); Lymphocytes % (auto) 11.7 % (10.0-50.0)
[2024-05-04 08:33] LABS: Basophils # (auto) 0 10 ^3/uL (0-0.2); Basophils % (auto) 0.2 % (0.0-2.0); Mean Corpuscular Hemoglobin 31.6 pg (28.0-32.0); Mean Corpuscular Hgb Conc. 32.8 g/dL (32.0-36.0); Mean Corpuscular Volume 96.4 fL (80.0-100.0); Monocytes % (auto) 5.4 % (0.0-12.0); Neutrophils # (auto) 15.4 10 ^3/uL (1.6-8.6); Neutrophils % (auto) 82.4 % (37.0-80.0); Platelet Count (auto) 602 10^3/uL (140-450); Red Cell Distribution Width 14.3 % (11.8-14.3); White Blood Cell 18.7 10^3/uL (4.4-10.8)
[2024-05-04 08:35] LABS: Glucose 109 mg/dL (74-106)
[2024-05-04 08:49] LABS: Lipase 43 U/L (12-53)
[2024-05-04 10:15] LABS: Hepatitis B Surface Antibody Negative (Negative); Hepatitis C Antibody Negative (Negative)
--- NOTE | 2024-05-04 11:44 | CONS ---
Pharmacy Clinical Information: CQM HF. Patient's current Hemoglobin A1c is 6.7%, per ADA 5 guidelines the Hemoglobin A1c goal for patients with diabetes is <7%. Based on reconciled medication external history, it seems that the patient takes insulin at home. Additionally, patient's serum glucose is within hospital goal (140-180). As patient is within goal, appropriate to continue current treatment. PASAH MARROQUIN PHARMACIST May 04, 2024 11:44
[2024-05-04] MEDS: IODIXANOL 320MG/ML 100ML BTL IV ONE (11:55)
[2024-05-04] MEDS: fentaNYL CITRATE 100 MCG/2 ML VL ONE ×2 (12:24→13:15)
[2024-05-04] MEDS: SODIUM CHL 0.9% 0 ML ONE (12:24)
[2024-05-04] MEDS: ANGIOMAX 250 MG VIAL IV ONE (12:24)
[2024-05-04] MEDS: MIDAZOLAM HCL 2MG/2ML 2ml VIAL (1mg/ml) ONE (12:24)
[2024-05-04] MEDS: LIDOCAINE 2%HCL (LOCAL ANESTH.) INJ 20ML MDV ONE (12:24)
[2024-05-04] MEDS: HEPARIN SODIUM (PORCINE) 5000 UNITS/ML 1ML VIAL ONE (12:58)
[2024-05-04] MEDS: methylPREDNISolone SOD SUCC 125 MG/2 ML VL ONE (13:16)
[2024-05-04] MEDS: diphenhdrAMINE HCL 50 MG/1 ML VL ONE (13:22)
--- NOTE | 2024-05-04 13:48 | DVHOP2 ---
Operative Report - 2 Report Details Date: 05/04/24 Preop Diagnosis: Non ST-elevation myocardial infarction. Patient presented with recurrent episodes of substernal chest tightness and heaviness similar to his angina. His troponin came back elevated with EKG showing nonspecific changes. Patient had CABG done recently at [facility]. It is reported that has a CASTELLON to LAD and a vein graft to the RCA. Postop Diagnosis: 1. Atretic CASTELLON to LAD and patent vein graft to RPDA. 2. Severe mid LAD InStent restenosis. This was treated today with PCI with a drug-eluting stent. 3. Severe mid RCA stenosis but the distal vessel fills from a patent vein graft. 4. Patent stent in the proximal to mid left circumflex. Surgeon: Peter West MD Anesthesiologist: The procedure was done under conscious sedation. Versed and fentanyl were given during the procedure. I was present for the whole procedure and sedation was given under my monitoring [id number]. Total time of sedation and monitoring is around 50 minutes. Patient did start having itching during the procedure so a dose of IV Solu-Medrol 120 mg was given. He also was given a dose of25 mg Benadryl IV. Anesthesia: Local, Regional Consent: The patient was informed of the risks and benefits of the procedure. These include but are not limited to complications of anesthesia, postoperative infection, incomplete relief of symptoms, recurrence of symptoms, damage to blood vessels, nerves and tendons, deep venous thrombosis, pulmonary embolism and possible need for repeat surgery in the future. Estimated Blood Loss: 10 cc Name of Procedure Performed 1. Selective Coronary and graft angiography. 2. Percutaneous coronary intervention with stenting of mid LAD InStent restenosis. 3. Ultrasound-guided vascular access. 4. Closure of the access site with Angio-Seal device. 5. Moderated sedation. Procedure Details Procedure Details: The patient was brought to the lab rn in a stable condition. He was found to have normal pulses in the right common femoral artery. The right groin area was sterilized and draped in a sterile fashion. The skin was anesthetized using 1% lidocaine. The access in the right common femoral artery was obtained using Seldinger approach and under ultrasound guidance. A 6 Algerian sheath was placed in the right common femoral artery. Graft angiography was performed using a JR4 diagnostic catheter, 6 Algerian. Left coronary angiography was performed using a JL 4.0 6 Algerian catheter. Percutaneous coronary intervention was performed using an XB 3.5 6 Algerian catheter. At the completion of the procedure hemostasis in the right common femoral artery was obtained using a 6 Algerian Angio-Seal. This was successfully deployed. Findings: Graft angiography: CASTELLON to LAD appears to be atretic with possible occlusion of the distal anastomosis site. Vein graft to RPDA is widely patent. Coronary angiography: The left main coronary artery is a normal caliber bifurcating vessel. It is free of any significant stenosis. The left anterior descending artery is a normal caliber vessel that extends and wraps around the apex. In its mid part there is severe InStent restenosis of around 90% severity. The distal vessel has moderate diffuse disease. There is a large 1st diagonal branch with [id number] the proximal to mid disease. The left circumflex artery is a normal-caliber vessel and has patent stents from its proximal to mid part. The obtuse marginal branches with no significant stenosis. The right coronary artery is a large and dominant vessel. It has a 95% stenosis in its mid to distal part. The distal vessel and branches fill from a patent vein graft to the RPDA. Percutaneous coronary intervention: Stenting of mid LAD InStent restenosis: Guide catheter used was XB, 3.5, 6 Algerian. Lesion severity is 90%. Lesion length is around 15 mm. Initial flow i s CALLIE 3. The vessel was wired using a 0.014 runthrough wire. Initially we performed balloon angioplasty using a 3.0 mm noncompliant balloon at 18 atmosphere. This was followed by stenting using a 3.5 x 30 mm Orsiro stent deployed at 14 atmospheres. Postdilatation was performed using a 3.5 mm noncompliant balloon at18 atmosphere. Post angio showed no residual stenosis, normal flow, no dissection. Condition Stable Disposition Still a Patient PETER WEST MD May 04, 2024 13:48
[2024-05-04] MEDS: ASPirin 81 mg TAB ONE (13:52)
[2024-05-04] MEDS: TICAGRELOR 90 MG TAB ONE (13:53)
--- NOTE | 2024-05-04 17:52 | DVHPNRES ---
Progress Note Date Seen: May 04, 2024 Resident Creating Document: MARILEE BETANCOURT RESIDENT Medical Necessity Reason Pt with a Central, PICC or Fol: No Subjective Review of Systems Patient is 48 years old male with past medical history of coronary artery disease, UT 9 times, status post PTCA times 11, most recent UT on 04/03/24 and had a CABG at [facility] on April 22, 2024 and discharged on 04/28/2024, hypertension, diabetes mellitus type 2, hyperlipidemia, history of diverticulitis came with a complaint of chest pain and shortness of breaths. As per patient he has been having chest pain since midnight which woke him up from the sleep. Pain lasted about 30 minute and came back and woke him up from sleep in 30 minutes. Chest pain was central, 10/10, pressure-like, radiating to the left side of the arm. Patient's chest pain was also associated with shortness of breath. Patient denied any fever, palpitation, cough, dysuria, acute joint pain or swelling, rash, dysarthria or change in vision. Patient also reported that has been feeling some exertional shortness of breath since yesterday morning. She lab workup revealed WBC 14.6, hemoglobin 8.5> 9.0, potassium 3.4, ALT 51, troponin I 303, INR 1.01, CRP 1.53, TSH 1.95, TG 186, BNP 226, HGB A1c 6.7. EKG sinus rhythm, no acute ST elevation or depression.No acute cardiopulmonary abnormality. Echo 2D revealed-Ejection fraction is estimated at 60%. paradoxical septal wall motion abnormality. grade II diastolic dysfunction. The right ventricle is not well visualized. RV systolic pressure is estimated at 24 mm Hg. PMH-coronary artery disease, MIx 9 times, status post PTCA x11, most recent UT on 04/03/24 and had a CABG at [facility] on April 22, 2024 and discharged on 04/28/2024, hypertension, diabetes mellitus type 2, hyperlipidemia, history of diverticulitis PSH- Multiple PTCA, CABG, sigmoid colectomy, left lung thoracotomy Allergy- iodinated diagnostic agent, metronidazole, pantoprazole Home medications: Metoprolol tartrate 12.5 mg b.i.d., aspirin 81 mg, Brilinta 90 mg b.i.d., atorvastatin 80 mg, furosemide 20 mg q.d. Personal History/ Social History- Patient lives with family and denies using drugs. Occasional smoker and alcohol drinker Patient was seen today at the bedside. Patient Cardiovascular- deny cough or palpitation Respiratory- denies cough or wheezing Gastrointestinal- denies any rectal bleeding, nausea or vomiting Musculoskeletal-denies acute joint swelling or tenderness or redness Neurological- denies acute dysarthria, dysphagia, change in vision Psychiatry- denies depression or SI or HI Skin- denies acute rash or purpura Patient was seen today for clinical evaluation. Labs and chart reviewed. Patient reported feeling better today. Patient had coronary angiogram today, status post stent to mid LAD due to in stent stenosis. Patient with a leukocytosis likely due to secondary to steroid. Postprocedural patient reports feeling better, vitals stable. Objective vital signs Vital Sign Date Time Temp Pulse Resp B/P (MAP) Pulse Ox O2 Delivery O2 Flow Rate FiO2 05/04/24 16:23 98.0 98 18 124/69 (87) 96 98.0 05/04/24 08:00 Room Air* 0 21 Total Intake and Output 05/03/24 05/03/24 05/04/24 15:00 23:00 07:00 Intake Total 1580 ml 450 ml Output Total 250 ml Balance 1580 ml 200 ml medications Current Medications Medications Dose Ordered Sig/Dionisio Route Start Time Stop Time Status Last Admin Dose Admin Nitroglycerin 0.4 mg Q5MINP PRN SL 05/01/24 04:15 Morphine Sulfate 2 mg Q30M PRN IV 05/01/24 04:15 05/01/24 15:52 2 MG Atorvastatin Calcium 80 mg HS PO 05/01/24 22:00 05/03/24 22:24 80 MG Metoprolol Tartrate 12.5 mg BID PO 05/01/24 10:00 05/03/24 22:43 12.5 MG Ticagrelor 90 mg BID PO 05/01/24 10:00 05/04/24 16:06 90 MG Aspirin 81 mg DAILY PO 05/01/24 10:00 05/04/24 16:07 81 MG Morphine Sulfate 2 mg Q4HPRN PRN IV 05/01/24 04:15 05/04/24 06:25 2 MG Acetaminophen/ Hydrocodone Bitart 1 tab Q4HP PRN PO 05/01/24 04:15 05/03/24 16:24 1 TAB Ondansetron HCl 4 mg Q6HPRN PRN IV 05/01/24 05:00 05/04/24 06:24 4 MG Enoxaparin Sodium 40 mg DAILY SC 05/01/24 10:00 05/03/24 09:58 40 MG Colchicine 0.6 mg Q12HR PO 05/01/24 22:00 05/04/24 16:07 0.6 MG Vancomycin HCl 0 ml @ 0 mls/hr UD IV 05/01/24 10:45 Ceftriaxone Sodium 50 ml @ 100 mls/hr DAILY@09 IV 05/02/24 09:00 05/04/24 10:33 100 MLS/HR EZETIMIBE 10 mg DAILY PO 05/02/24 10:00 05/04/24 10:00 10 MG Diphenhydramine HCl 25 mg BID PO 05/01/24 22:00 05/04/24 10:32 25 MG Famotidine 20 mg Q12HR PO 05/01/24 22:00 05/04/24 16:07 20 MG Methylprednisolone Sodium Succinate 40 mg DAILY IV 05/02/24 10:00 05/04/24 10:33 40 MG Vancomycin HCl 250 ml @ 200 mls/hr Q12H IV 05/02/24 00:00 05/04/24 16:45 200 MLS/HR Examination General examination- awake, alert, oriented, conversant, sternal incision tray from recent CABG HEENT- PEERLA, no acute nasal discharge Cardiovascular- S1-S2 audible, rate and rhythm regular, no murmur Respiratory- CTAB, no wheeze or rhonchi Gastrointestinal-nontender, bowel sound+. Nondistended Musculoskeletal-no acute joint swelling or tenderness or redness# Lower extremity- no leg edema Neurological- cranial nerves intact, no acute dysarthria or dysphagia Psychiatry- denies depression or SI or HI Skin- no acute rash or purpura laboratory and microbiology Laboratory Tests 05/04/24 07:24 Test 05/04/24 07:24 Range/Units Serum Glucose 109 H 74-106 mg/dL Microbiology Date/Time Source Procedure Growth Status 05/02/24 06:30 Nose MRSA Screen - Final Complete 05/01/24 13:00 Blood Blood Culture - Preliminary NO GROWTH AFTER 72 HOURS OF INCUBATION. Resulted Problem List/Assessment/Plan Problem List/Assessment/Plan Acute chest pain likely due to NSTEMI type 1 Rule out acute mediastinitis Rule out postpericardiotomy syndrome ( PPS) CAD, UT 9 times, , status post PTCA, status post CABG on 04/22/2024 Diabetes mellitus Type II Hypertension Heart 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 diastolic Hyperlipidemia Hypokalemia SIRS Moderate to severe anemia likely from bleeding Diverticulosis Steroid induced leukocytosis Started for CAG, status post Percutaneous coronary intervention with stenting of mid LAD InStent restenosis on 05/04/2024. Continue aspirin 81 mg daily Continue atorvastatin 80 mg p.o. q.h.s. Continue ceftriaxone 1 g IV daily Continue vancomycin 1.25 mg IV q.12 hours Metoprolol 12.5 mg p.o. be Continue colchicine 0.6 mg p.o. q.12 hours Ezetimibe 10 mg p.o. daily Continue famotidine 20 mg p.o. q.12 hours Continue methylprednisolone 12.5 mg p.o. b.i.d. Continue Prilosec 20 mg p.o. b.i.d. Continue other medication as prescribed Goals of care/advance care planning; FULL CODE; discussed with the patient >15 minutes PUD prophylaxis: Famotidine DVT prophylaxis: Lovenox Plan discussed with Darren Townsend, nursing staff, patient Total time spent on patient evaluation, chart review, assessment and plan, discussion discussion >30 minutes Plan discussed with: Patient Plan discussed with: Patient, Other (RN) My Orders My Orders Orders - MARILEE BETANCOURT Procedure Category Date Status Time Lidocaine 2% (Local PHA 05/04/24 In Process Anesth.) (Xylocaine) 12:24 Date of Service: May 04, 2024 Billing Provider: ERON DESAI MD Common Visit Codes: [id number] INP/OBS CARE(HIGH) MARILEE BETANCOURT May 04, 2024 17:52 ERON DESAI MD May 05, 2024 14:07
[2024-05-04] MEDS: MELATONIN 5 MG TAB PO ONE (22:30)
[2024-05-05] VITALS (9 sets, daily range): BP systolic 107–138; BP diastolic 64–84; PULSE 80–98; RESP 16–20; TEMP 97.9–98.7; O2SAT 96–98
[2024-05-05 07:54] LABS: Basophils # (auto) 0 10 ^3/uL (0-0.2); Basophils % (auto) 0.1 % (0.0-2.0); Eosinophils # (auto) 0 10 ^3/uL (0-0.8); Lymphocytes # (auto) 0.8 10 ^3/uL (0.4-5.4); Neutrophils % (auto) 92.8 % (37.0-80.0)
[2024-05-05 07:57] LABS: Hematocrit 27.8 % (41.0-53.0); Lymphocytes % (auto) 3.1 % (10.0-50.0); Mean Corpuscular Hemoglobin 31.9 pg (28.0-32.0); Mean Corpuscular Hgb Conc. 32.3 g/dL (32.0-36.0); Mean Corpuscular Volume 98.9 fL (80.0-100.0); Neutrophils # (auto) 22.9 10 ^3/uL (1.6-8.6); Nucleated Red Blood Cells % 0.2 %; Platelet Count (auto) 666 10^3/uL (140-450); Red Blood Cells 2.81 10^6/uL (4.5-5.90); Red Cell Distribution Width 14.9 % (11.8-14.3); White Blood Cell 24.7 10^3/uL (4.4-10.8)
--- NOTE | 2024-05-05 08:41 | DVHPN2 ---
Consult Progress Note Subjective Patient reports: Feels better Other Systems: Denies any chest pressure, reports slight pain at CABG incisional site. Objective vital signs Vital Sign Date Time Temp Pulse Resp B/P (MAP) Pulse Ox O2 Delivery O2 Flow Rate FiO2 05/05/24 05:32 88 20 124/69 05/05/24 05:00 98.7 96 98.7 05/04/24 20:00 Room Air* 0 21 Total Intake and Output 05/04/24 05/04/24 05/05/24 14:59 22:59 06:59 Intake Total 460 ml 1050 ml Output Total 400 ml 400 ml 1100 ml Balance -400 ml 60 ml -50 ml medications Current Medications Medications Dose Ordered Sig/Dionisio Route Start Time Stop Time Status Last Admin Dose Admin Nitroglycerin 0.4 mg Q5MINP PRN SL 05/01/24 04:15 Morphine Sulfate 2 mg Q30M PRN IV 05/01/24 04:15 05/01/24 15:52 2 MG Atorvastatin Calcium 80 mg HS PO 05/01/24 22:00 05/04/24 22:44 80 MG Metoprolol Tartrate 12.5 mg BID PO 05/01/24 10:00 05/04/24 22:45 12.5 MG Ticagrelor 90 mg BID PO 05/01/24 10:00 05/04/24 16:06 90 MG Aspirin 81 mg DAILY PO 05/01/24 10:00 05/04/24 16:07 81 MG Morphine Sulfate 2 mg Q4HPRN PRN IV 05/01/24 04:15 05/05/24 05:02 2 MG Acetaminophen/ Hydrocodone Bitart 1 tab Q4HP PRN PO 05/01/24 04:15 05/03/24 16:24 1 TAB Ondansetron HCl 4 mg Q6HPRN PRN IV 05/01/24 05:00 05/05/24 05:01 4 MG Enoxaparin Sodium 40 mg DAILY SC 05/01/24 10:00 05/03/24 09:58 40 MG Colchicine 0.6 mg Q12HR PO 05/01/24 22:00 05/04/24 22:45 0.6 MG Vancomycin HCl 0 ml @ 0 mls/hr UD IV 05/01/24 10:45 Ceftriaxone Sodium 50 ml @ 100 mls/hr DAILY@09 IV 05/02/24 09:00 05/04/24 10:33 100 MLS/HR EZETIMIBE 10 mg DAILY PO 05/02/24 10:00 05/04/24 10:00 10 MG Diphenhydramine HCl 25 mg BID PO 05/01/24 22:00 05/04/24 22:45 25 MG Famotidine 20 mg Q12HR PO 05/01/24 22:00 05/04/24 22:45 20 MG Methylprednisolone Sodium Succinate 40 mg DAILY IV 05/02/24 10:00 05/04/24 10:33 40 MG Vancomycin HCl 250 ml @ 200 mls/hr Q12H IV 05/02/24 00:00 05/05/24 01:20 200 MLS/HR Examination: GENERAL:Normal, LUNGS:Normal, CVS:Normal, NEURO:Normal laboratory and microbiology Laboratory Tests 05/05/24 06:38 05/04/24 07:24 Test 05/04/24 07:24 Range/Units Serum Glucose 109 H 74-106 mg/dL Problem List/Assessment/Plan Problem List/Assessment/Plan NSTEMI with progressive CAD -->S/P C on 05/04/24: PCI X 1 BORIS to mid LAD -->continue dual antiplatelet therapy with Brilinta and aspirin --> continue metoprolol --> continue atorvastatin and ezetimibe Ruled out acute mediastinitis --> Chest CT shows no significant mediastinal adenopathy, no mediastinal fluid collections, no gas bubbles noted in the mediastinum. Minimal mediastinal stranding in the fat may be secondary to postoperative changes and sternal wire sutures. --> ESR: 43; CRP: 1.53 --> Blood culture: Preliminary, negative --> colchicine .6mg bid --> Vancomycin per pharmacy --> Ceftriaxone Hypertension --> Continue Metoprolol Rule out postpericardiotomy syndrome ( PPS) --> CABG on 04/22 at [facility] --> History of 9 myocardial infarctions and 11 Stents --> Continue DAPT, statin and ezetimibe, BB Diabetes mellitus Type II --> Hgb1 A1c: 6.7% Echocardiogram reveals EF 50%. Patient underwent a coronary angiogram with left heart catheterization on 05/04/24 in which he was found to have severe mid LAD InStent restenosis and was treated with PCI (X 1 BORIS). Continue with dual antiplatelet therapy with Brilinta and aspirin, continue beta-laurel, continue lipid-lowering agents, add daily Lasix 20 mg. There is no further inpatient cardiac workup indicated at this time. The patient has a follow up appointment with his primary bun machine operator on May 11, 2024, and a follow up with his Cardiothoracic surgeon at [facility] on May 20, 2024. Thank you for allowing us to participate in the care of this patient. Please call if you have any questions or concerns. This medical document was created using an electronic medical record system with voice recognition software and computerized dictation system. Although this document has been carefully reviewed, there might still be some phonetic and typographical errors. Occasional wrong-word or ``sound-alike substitutions may have occurred due to the inherent limitations of voice recognition software. These areas are purely typographical due to imperfections of the software programs and do not reflect any compromise in the patient's medical care. Please read the chart carefully and recognize, using context, where these substitutions have occurred. Plan discussed with: Patient Date of Service: May 05, 2024 Billing Provider: PETER WEST MD Common Visit Codes: [id number] INP/OBS CARE(HIGH) CHANDA GUPTA [facility] May 05, 2024 08:41
[2024-05-05] MEDS: FUROSEMIDE 20 MG TAB PO SCH (10:01)
[2024-05-05] MEDS ORDERED: EZET-10 PO (10:17)
[2024-05-05] MEDS ORDERED: TICA90TA PO (10:18)
--- NOTE | 2024-05-05 15:40 | DVHDSRES ---
Discharge Summary Date of Admission Resident Creating Document: MARILEE BETANCOURT RESIDENT May 01, 2024 at 04:04 Date of Discharge: May 05, 2024 Admitting Diagnosis Acute chest pain and shortness of breaths Labs/Diagnostic Data: Laboratory Results Test 05/05/24 06:38 05/04/24 15:52 05/04/24 13:44 05/04/24 07:24 White Blood Count 24.7 10^3/uL (4.4-10.8) Red Blood Count 2.81 10^6/uL (4.5-5.90) Hemoglobin 9.0 g/dL (13.5-17.5) Hematocrit 27.8 % (41.0-53.0) Mean Corpuscular Volume 98.9 fL (80.0-100.0) Mean Corpuscular Hemoglobin 31.9 pg (28.0-32.0) Mean Corpuscular Hemoglobin Concent 32.3 g/dL (32.0-36.0) Red Cell Distribution Width 14.9 % (11.8-14.3) Platelet Count 666 10^3/uL (140-450) Mean Platelet Volume 7.8 fL (6.9-10.8) Neutrophils (%) (Auto) 92.8 % (37.0-80.0) Lymphocytes (%) (Auto) 3.1 % (10.0-50.0) Monocytes (%) (Auto) 4.0 % (0.0-12.0) Eosinophils (%) (Auto) 0.0 % (0.0-7.0) Basophils (%) (Auto) 0.1 % (0.0-2.0) Neutrophils # (Auto) 22.9 10 ^3/uL (1.6-8.6) Lymphocytes # (Auto) 0.8 10 ^3/uL (0.4-5.4) Monocytes # (Auto) 1.0 10 ^3/uL (0-1.3) Eosinophils # (Auto) 0 10 ^3/uL (0-0.8) Basophils # (Auto) 0 10 ^3/uL (0-0.2) Nucleated Red Blood Cells 0.2 % Creatinine 1.12 mg/dL (0.700-1.30) Glomerular Filtration Rate Calc 80 mL/min (>90) Vancomycin Level Trough 12.1 ug/mL (5-10) Activated Clotting Time 263 SEC. (93-166) Sodium Level 138 mmol/L (136-145) Potassium Level 4.0 mmol/L (3.5-5.1) Chloride Level 105 mmol/L (98-107) Carbon Dioxide Level 25 mmol/L (20-31) Anion Gap 8 (5-15) Blood Urea Nitrogen 13 mg/dL (9-23) BUN/Creatinine Ratio 12.9 (10.0-20.0) Serum Glucose 109 mg/dL (74-106) Calcium Level 9.5 mg/dL (8.7-10.4) Magnesium Level 2.2 mg/dL (1.6-2.6) Troponin I High Sensitivity 144 ng/L (</=54) Lipase 43 U/L (12-53) Test 05/02/24 06:35 05/01/24 20:05 05/01/24 10:30 05/01/24 07:25 Total Bilirubin 0.4 mg/dL (0.2-1.0) Aspartate Amino Transferase (AST) 22 U/L (13-40) Alanine Aminotransferase (ALT) 54 U/L (7-40) Alkaline Phosphatase 119 U/L (46-116) Total Protein 5.8 g/dL (5.7-8.2) Albumin 3.9 g/dL (3.2-4.8) Erythrocyte Sedimentation Rate 37 mm/hr (0-20) Hepatitis B Surface Antibody Negative (Negative) Hepatitis C Antibody Negative (Negative) Influenza Type A Antigen Negative (Negative) Influenza Type B Antigen Negative (Negative) SARS-CoV-2 Antigen (Rapid) Negative (NEGATIVE) Urine Color Light-yellow (Yellow) Urine Clarity Clear (Clear) Urine pH 7.0 (5.0-9.0) Urine Specific Maxwell 1.010 (1.001-1.035) Urine Protein Negative (Negative) Urine Ketones Negative (Negative) Urine Blood Negative /uL (Negative) Urine Nitrite Negative (Negative) Urine Bilirubin Negative (Negative) Urine Urobilinogen Normal mg/dL (Negative) Urine Leukocyte Esterase Negative /uL (Negative) Urine RBC 1 /hpf (0 - 3) Urine WBC <1 /hpf (0 - 3) Urine Squamous Epithelial Cells None seen /hpf (<5) Urine Bacteria Few /hpf (None Seen) Urine Glucose Normal mg/dL (Normal) Urine Opiates Screen Neg (NEGATIVE) Urine Fentanyl Screen Neg (NEGATIVE) Urine Barbiturates Screen Neg (NEGATIVE) Urine Phencyclidine Screen Neg (NEGATIVE) Urine Amphetamines Screen Neg (NEGATIVE) Urine Benzodiazepines Screen Neg (NEGATIVE) Urine Cocaine Screen Neg (NEGATIVE) Urine Cannabinoids Screen Neg (NEGATIVE) Test 05/01/24 02:45 05/01/24 01:47 Hemoglobin A1c 6.7 % A1C (<5.7) C-Reactive Protein High Sensitivity 1.53 mg/dL (<1.0) B-Type Natriuretic Peptide 226.42 pg/mL (0-100) Triglycerides Level 186 mg/dL (< 150) Cholesterol Level 98 mg/dL (< 200) LDL Cholesterol 50 mg/dL (< 100) HDL Cholesterol 23 mg/dL (40-59) Thyroid Stimulating Hormone (TSH) 1.95 uIU/mL (0.55-4.78) Prothrombin Time 10.7 sec (9.3-11.8) Prothrombin Time INR 1.01 (0.9-1.15) Activated Partial Thromboplast Time 22.4 SEC (24.5-34.5) Other Laboratory Tests 05/05/24 06:38 05/04/24 07:24 Brief Hx & Hospital Course: Patient is 48 years old male with past medical history of coronary artery disease, HI 9 times, status post PTCA times 11, most recent HI on 04/03/24 and had a CABG at [facility] on April 22, 2024 and discharged on 04/28/2024, hypertension, diabetes mellitus type 2, hyperlipidemia, history of diverticulitis came with a complaint of chest pain and shortness of breaths. As per patient he has been having chest pain since midnight which woke him up from the sleep. Pain lasted about 30 minute and came back and woke him up from sleep in 30 minutes. Chest pain was central, 10/10, pressure-like, radiating to the left side of the arm. Patient's chest pain was also associated with shortness of breath. Patient denied any fever, palpitation, cough, dysuria, acute joint pain or swelling, rash, dysarthria or change in vision. Patient also reported that has been feeling some exertional shortness of breath since yesterday morning. She lab workup revealed WBC 14.6, hemoglobin 8.5> 9.0, potassium 3.4, ALT 51, troponin I 303, INR 1.01, CRP 1.53, TSH 1.95, TG 186, BNP 226, HGB A1c 6.7. EKG sinus rhythm, no acute ST elevation or depression.No acute cardiopulmonary abnormality. Echo 2D revealed-Ejection fraction is estimated at 60%. paradoxical septal wall motion abnormality. grade II diastolic dysfunction. The right ventricle is not well visualized. RV systolic pressure is estimated at 24 mm Hg. During hospitalization patient was treated conservatively. Patient had coronary angiogram on 05/04/2024, status post stent to mid LAD due to in stent stenosis. Patient with a leukocytosis likely due to secondary to steroid. Patient's symptoms clinically improved. Patient is being discharged home with home medication. Patient was advised to follow up with the environmental protection economist and cardiac surgeon team at [place] where CABG. Patient verbalized understanding. Patient was hemodynamically stable on discharge PMH-coronary artery disease, MIx 9 times, status post PTCA x11, most recent HI on 04/03/24 and had a CABG at [facility] on April 22, 2024 and discharged on 04/28/2024, hypertension, diabetes mellitus type 2, hyperlipidemia, history of diverticulitis PSH- Multiple PTCA, CABG, sigmoid colectomy, left lung thoracotomy Allergy- iodinated diagnostic agent, metronidazole, pantoprazole Home medications: Metoprolol tartrate 12.5 mg b.i.d., aspirin 81 mg, Brilinta 90 mg b.i.d., atorvastatin 80 mg, furosemide 20 mg q.d. Personal History/ Social History- Patient lives with family and denies using drugs. Occasional smoker and alcohol drinker Patient was seen today at the bedside. Patient Cardiovascular- deny cough or palpitation Respiratory- denies cough or wheezing Gastrointestinal- denies any rectal bleeding, nausea or vomiting Musculoskeletal-denies acute joint swelling or tenderness or redness Neurological- denies acute dysarthria, dysphagia, change in vision Psychiatry- denies depression or SI or HI Skin- denies acute rash or purpura General examination- awake, alert, oriented, conversant, sternal incision tray from recent CABG HEENT- PEERLA, no acute nasal discharge Cardiovascular- S1-S2 audible, rate and rhythm regular, no murmur Respiratory- CTAB, no wheeze or rhonchi Gastrointestinal-nontender, bowel sound+. Nondistended Musculoskeletal-no acute joint swelling or tenderness or redness# Lower extremity- no leg edema Neurological- cranial nerves intact, no acute dysarthria or dysphagia Psychiatry- denies depression or SI or HI Skin- no acute rash or purpura In the presence of Fig Caprifier Jovanni RN per rectal examination was done and no active bleeding was noted. laboratory and microbiology Operations or Procedures Ph: [phone] DIAGNOSTIC IMAGING Diagnostic Imaging Report : [id number] Signed PATIENT: KELLY OTERO ACCT: [id number] UNIT: [id number] : 1975 LOC: ER ROOM / BED: / AGE / SEX: 48 / M ADM STATUS: REG ER SERVICE 7 ORDERING PHYSICIAN: MATTHEW MONET MD PROCEDURE(s): CXRP - CHEST PORTABLE REASON: chest pain ORDER NUMBER(s): [id number], ACCESSION NUMBER(s): [id number] EXAM: XY CHEST PORTABLE CLINICAL HISTORY: chest pain TECHNIQUE: Single AP view of the chest WID: COMPARISON: None FINDINGS: Lines and tubes: Prior median sternotomy and CABG. Chest: The heart size and pulmonary vasculature is within normal limits. No pleural effusion, pneumothorax, or consolidation. The osseous structures are grossly intact. IMPRESSION: No acute cardiopulmonary abnormality. ATED BY: RANDAL WEIR MD DICTATED DATE/TIME: 05/01/24137 SIGNED BY: RANDAL WEIR MD SIGNED DATE/TIME: 05/01/24137 CC: atient: KELLY OTERO Acct: [id number] : 1975 Loc: [facility] Age/Sex: 48/M Room: [facility]9T / Bed: B Attending Phy: MARILEE BETANCOURT RESIDENT Operative Report - 2 Report Details Date: 05/04/24 Preop Diagnosis: Non ST-elevation myocardial infarction. Patient presented with recurrent episodes of substernal chest tightness and heaviness similar to his angina. His troponin came back elevated with EKG showing nonspecific changes. Patient had CABG done recently at [facility]. It is reported that has a CASTELLON to LAD and a vein graft to the RCA. Postop Diagnosis: 1. Atretic CASTELLON to LAD and patent vein graft to RPDA. 2. Severe mid LAD InStent restenosis. This was treated today with PCI with a drug-eluting stent. 3. Severe mid RCA stenosis but the distal vessel fills from a patent vein graft. 4. Patent stent in the proximal to mid left circumflex. Surgeon: Ayse West MD Anesthesiologist: The procedure was done under conscious sedation. Versed and fentanyl were given during the procedure. I was present for the whole procedure and sedation was given under my monitoring [id number]. Total time of sedation and monitoring is around 50 minutes. Patient did start having itching during the procedure so a dose of IV Solu-Medrol 120 mg was given. He also was given a dose of25 mg Benadryl IV. Anesthesia: Local, Regional Consent: The patient was informed of the risks and benefits of the procedure. These include but are not limited to complications of anesthesia, postoperative infection, incomplete relief of symptoms, recurrence of symptoms, damage to blood vessels, nerves and tendons, deep venous thrombosis, pulmonary embolism and possible need for repeat surgery in the future. Estimated Blood Loss: 10 cc Name of Procedure Performed 1. Selective Coronary and graft angiography. 2. Percutaneous coronary intervention with stenting of mid LAD InStent restenosis. 3. Ultrasound-guided vascular access. 4. Closure of the access site with Angio-Seal device. 5. Moderated sedation. Procedure Details Procedure Details: The patient was brought to the label maker in a stable condition. He was found to have normal pulses in the right common femoral artery. The right groin area was sterilized and draped in a sterile fashion. The skin was anesthetized using 1% lidocaine. The access in the right common femoral artery was obtained using Seldinger approach and under ultrasound guidance. A 6 Eritrean sheath was placed in the right common femoral artery. Graft angiography was performed using a JR4 diagnostic catheter, 6 E[place]an. Left coronary angiography was performed using a JL 4.0 6 E[place]rean catheter. Percutaneous coronary intervention was performed using an XB 3.5 6 E[place]rean catheter. At the completion of the procedure hemostasis in the right common femoral artery was obtained using a 6 Eritrean Angio-Seal. This was successfully deployed. Findings: Graft angiography: CASTELLON to LAD appears to be atretic with possible occlusion of the distal anastomosis site. Vein graft to RPDA is widely patent. Coronary angiography: The left main coronary artery is a normal caliber bifurcating vessel. It is free of any significant stenosis. The left anterior descending artery is a normal caliber vessel that extends and wraps around the apex. In its mid part there is severe InStent restenosis of around 90% severity. The distal vessel has moderate diffuse disease. There is a large 1st diagonal branch with [id number] the proximal to mid disease. The left circumflex artery is a normal-caliber vessel and has patent stents from its proximal to mid part. The obtuse marginal branches with no significant stenosis. The right coronary artery is a large and dominant vessel. It has a 95% stenosis in its mid to distal part. The distal vessel and branches fill from a patent vein graft to the RPDA. Percutaneous coronary intervention: Stenting of mid LAD InStent restenosis: Guide catheter used was XB, 3.5, 6 E[place]rean. Lesion severity is 90%. Lesion length is around 15 mm. Initial flow is CALLIE 3. The vessel was wired using a 0.014 runthrough wire. Initially we performed balloon angioplasty using a 3.0 mm noncompliant balloon at 18 atmosphere. This was followed by stenting using a 3.5 x 30 mm MxBiodevicesiro stent deployed at 14 atmospheres. Postdilatation was performed using a 3.5 mm noncompliant balloon at18 atmosphere. Post angio showed no residual stenosis, normal flow, no dissection. Condition Stable Disposition 2 Still a Patient AYSE WEST MD May 04, 2024 13:48 DICTATED BY:AYSE WEST MD DICTATED DATE/TIME:05/04/24 1348 ELECTRONICALLY SIGNED BY:AYSE WEST MD 05/04/24 1348 ELECTRONICALLY CO-SIGNED BY: Condition at Discharge: Stable Final Diagnosis/Problems List Acute chest pain likely due to NSTEMI type 1 on 05/04/24-CAG, status post Percutaneous coronary intervention with stenting of mid LAD InStent restenosis Rule out acute mediastinitis Rule out postpericardiotomy syndrome ( PPS) CAD, HI 9 times, , status post PTCA, status post CABG on 04/22/2024 Diabetes mellitus Type II Hypertension Heart 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 diastolic Hyperlipidemia Hypokalemia SIRS Moderate to severe anemia likely from bleeding Diverticulosis Steroid induced leukocytosis Discharge Disposition: Home Discharge Instruct/Medications Diet: Consistent carbohydrate, Cardiac 2g Na,low cholest Activity: Light activity Follow Up/Referral: Please follow up with your primary care physician in 1 week Follow up with your environmental protection economist at cardiac surgeon at [facility] Please be compliant with the medications Medications: Continue current medication Discharge Statement: "Patient was advised to return to the ER or call 911 if any headaches, dizziness, shortness of breath, chest pain, abdominal pain, bleeding, fevers, or worsening of medical condition. Patient was counseled about treatment plan, medications, possible side effects, patientverbalized understanding. All questions were answered to the best of my ability. This discharge took greater then 30 minutes in planning, reviewing documentation, counseling the patient, and discussing with other team members." ASSESSMENT ASSESSMENT Assessment Acute chest pain likely due to NSTEMI type 1 Rule out acute mediastinitis Rule out postpericardiotomy syndrome ( PPS) CAD, HI 9 times, , status post PTCA, status post CABG on 04/22/2024 Diabetes mellitus Type II Hypertension Heart 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 diastolic Hyperlipidemia Hypokalemia SIRS Moderate to severe anemia likely from bleeding Diverticulosis Steroid induced leukocytosis Date of Service: May 05, 2024 Billing Provider: ERON DESAI MD Common Visit Codes: 77919-CPJ/OBS DISCH DAY >30min MARILEE BETANCOURT RESIDENT May 05, 2024 15:40 ERON DESAI MD May 05, 2024 23:48
--- NOTE | 2024-05-06 09:02 | ECG ---
[facility] Test Date: 2024-05-04 Test Time: 13:46:57 Pat Name: KELLY OTERO Department: Room: 0249T B Gender: M [employer] Maker: YAYA : 1975 Requested By: PETER WEST Order Number: [id number] Reading MD: Peter West Measurements Intervals Delta Rate: 83 P: 29 TX: 124 QRS: -43 QRSD: 102 T: 39 QT: 426 QTc: 500 Interpretive Statements Normal sinus rhythm Left axis deviation Incomplete right bundle branch block Inferior infarct , age undetermined Minimal ST elevations, anterolateral leads Prolonged QT Electronically Signed On 05-06-2024 21:01:14 PST by Peter West Please click the below link to view image of tracing.
== END 2024-05-05 20:23 | disposition home or self-care (01) | DRG 175 ==
LOC: ER 01:00 → EDBD 01:00 → TELE 04:04 → TELE-EAST 18:38
PROVIDERS: ADMIT Student in an Organized Health Care Education/Training Program; ATTEND Emergency Medicine
PROC: 027034Z Dilation of Coronary Artery, One Artery with Drug-eluting Intraluminal Device, Percutaneous Approach (ICD-10-PCS; principal; 2024-05-04)
PROC: B211YZZ Fluoroscopy of Multiple Coronary Arteries using Other Contrast (ICD-10-PCS; 2024-05-04)
PROC: B215YZZ Fluoroscopy of Left Heart using Other Contrast (ICD-10-PCS; 2024-05-04)
PROC: 4A023N7 Measurement of Cardiac Sampling and Pressure, Left Heart, Percutaneous Approach (ICD-10-PCS; 2024-05-04)
DX: T82.855A Stenosis of coronary artery stent, initial encounter (principal); J96.01 Acute respiratory failure with hypoxia; I21.4 Non-ST elevation (NSTEMI) myocardial infarction; I50.31 Acute diastolic (congestive) heart failure; R65.10 Systemic inflammatory response syndrome (SIRS) of non-infectious origin without acute organ dysfunction; I11.0 Hypertensive heart disease with heart failure; E11.9 Type 2 diabetes mellitus without complications; D64.9 Anemia, unspecified; E78.5 Hyperlipidemia, unspecified; E87.6 Hypokalemia; Z20.822 Contact with and (suspected) exposure to COVID-19; K21.9 Gastro-esophageal reflux disease without esophagitis; I25.110 Atherosclerotic heart disease of native coronary artery with unstable angina pectoris; T38.0X5A Adverse effect of glucocorticoids and synthetic analogues, initial encounter; Y83.1 Surgical operation with implant of artificial internal device as the cause of abnormal reaction of the patient, or of later complication, without mention of misadventure at the time of the procedure; Z95.1 Presence of aortocoronary bypass graft; Z88.8 Allergy status to other drugs, medicaments and biological substances; Y92.89 Other specified places as the place of occurrence of the external cause; Z79.82 Long term (current) use of aspirin
CPT/HCPCS: 36415; 71045; 71250; 80048; 80053; 80061; 80202; 80307; 81001; 82565; 83036; 83690; 83735; 83880; 84443; 84484; 85025; 85610; 85652; 85730; 86141; 86706; 86803; 87040; 87081; 87205; 87426; 87804; 92941; 93005; 93306; 93458; 97163; 99291; G0378; J2250; J2405; J3490; Q9967